=== PATIENT | female | born 1990 | race Caucasian/White ===

== ENCOUNTER 2017-01-22 07:10 | Emergency (ER) | payer OTHER ==
[2017-01-22] MEDS ORDERED: SODIUM CHLORIDE 0.9% 1,000 ML IV STA ×2 (07:39)
--- NOTE | 2017-01-22 08:37 | ED ---
Syncope HPI - General Chief Complaint: Syncope Stated Complaint: Syncope Time Seen by Provider: 01/22/17 07:28 Source: patient Mode of arrival: ambulatory - History of Present Illness Initial Comments: This 26-year-old white female presents with a complaint of a syncopal episode. She apparently was up all night as she works late. She was out by her car when she had a syncopal episode. She apparently fell forwards and hit her mouth on the car and then fell backwards and hit her head. This occurred at 5:20 AM. She apparently was somewhat out of it directly afterwards but has regained normal consciousness. She does complain of some pain around her mouth and to her occiput. She denies any other injuries. She relates that she had a cookie and a fruit rollup right before this happened but otherwise had not eat anything for over 10 hours. She denies any history of hypoglycemia. She denies any possibility of as she is on Depo-Provera. She denies any previous similar incidents. No other complaints or modifying factors. - Related Data Home Medications Medication Instructions Recorded Confirmed medroxyPROGESTERone [Depo-Provera] 150 mg IM ONCE 01/22/17 01/22/17 Allergies Allergy/AdvReac Type Severity Reaction Status Date / Time No Known Allergies Allergy Verified 01/22/17 07:44 Review of Systems ROS Statement: Those systems with pertinent positive or pertinent negative responses have been documented in the HPI. ROS Other: All systems not noted in ROS Statement are negative. Past Medical History Additional Past Medical History / Comment(s): SCOLIOSIS History of Any Multi-Drug Resistant Organisms: None Reported Past Surgical History: Back Surgery Smoking Status: Never smoker Past Alcohol Use History: Occasional Past Drug Use History: None Reported General Exam - General Exam Comments Initial Comments: GENERAL: The patient is well nourished and well hydrated. VITAL SIGNS: Heart rate, blood pressure, respiratory rate reviewed as recorded in nurse's notes. EYES: Pupils are round and reactive. Extraocular movements are intact. No conjunctival / lid redness or swelling. ENT: There is mild tenderness and slight swelling present to the left occiput. There is some mild tenderness around the mouth area. Dentition is intact. There is no intraoral lesions or trauma noted. There is no facial swelling noted. Airway is patent. Throat is clear. NECK: Nontender. No swelling or evidence of injury. No subcutaneous emphysema. Trachea is midline. No thyroid mass. HEART: Regular rate and rhythm. Good peripheral pulses. LUNGS/CHEST: Breath sounds clear and equal bilaterally. No rales, rhonchi, or wheezes. No ecchymosis, subcutaneous emphysema, or tenderness. ABDOMEN: Abdomen soft without tenderness. No palpable masses or organomegaly. No peritoneal signs. No abdominal wall swelling or ecchymosis. EXTREMITIES: No extremity tenderness. Normal muscle tone and function. No thoracolumbar tenderness. NEUROLOGIC: Sensation is grossly intact. Cranial nerve exam reveals face is symmetrical, tongue is midline, speech is clear. SKIN: No abrasions or ecchymosis is noted. No induration or masses noted. PSYCHIATRIC: Alert and oriented. Appropriate behavior and judgment. Course Vital Signs 01/22/17 07:14 Temperature 98.4 F Pulse Rate 109 H Respiratory 18 Rate Blood Pressure 124/77 O2 Sat by Pulse 98 Oximetry Medical Decision Making - Medical Decision Making The patient was seen and examined. All diagnostics were reviewed. The EKG shows a normal sinus rhythm at a rate of 93. There is some non-specific ST-T wave changes noted in the anteroseptal leads. The VT interval is 136, QRS duration is 84, and the QTc interval is 420. An IV is started patient is hydrated. The laboratory was unremarkable. The computed tomography scan of the brain was negative for any acute process. She is feeling well on recheck. It is felt that her syncopal episode may have been related to some hypoglycemia potentially. Her blood sugar is fine now but she did have something to eat. She is counseled regarding diet. Return parameters are discussed. She is subsequently discharged. - Lab Data Result diagrams: 01/22/17 07:45 01/22/17 07:45 Lab Results 01/22/17 01/22/17 Range/Units 07:45 07:45 WBC 9.0 (3.8-10.6) k/uL RBC 4.33 (3.80-5.40) m/uL Hgb 13.6 (11.4-16.0) gm/dL Hct 41.6 (34.0-46.0) % MCV 96.2 (80.0-100.0) fL MCH 31.3 (25.0-35.0) pg MCHC 32.6 (31.0-37.0) g/dL RDW 12.2 (11.5-15.5) % Plt Count 247 (150-450) k/uL Neutrophils % (Manual) 81.0 % Lymphocytes % (Manual) 10.0 % Monocytes % (Manual) 9.0 % Neutrophils # (Manual) 7.3 (1.3-7.7) k/uL Lymphocytes # (Manual) 0.9 L (1.0-4.8) k/uL Monocytes # (Manual) 0.8 (0-1.0) k/uL Nucleated RBCs 0 (0-0) /100 WBC Manual Slide Review Performed RBC Morphology Normal Sodium 143 (137-145) mmol/L Potassium 3.9 (3.5-5.1) mmol/L Chloride 108 H (98-107) mmol/L Carbon Dioxide 23 (22-30) mmol/L Anion Gap 12 mmol/L BUN 22 H (7-17) mg/dL Creatinine 0.70 (0.52-1.04) mg/dL Est GFR (MDRD) Af Amer >60 (>60 ml/min/1.73 sqM) Est GFR (MDRD) Non-Af >60 (>60 ml/min/1.73 sqM) Glucose 124 H (74-99) mg/dL Calcium 9.5 (8.4-10.2) mg/dL Total Bilirubin 0.4 (0.2-1.3) mg/dL AST 19 (14-36) U/L ALT 23 (9-52) U/L Alkaline Phosphatase 57 (38-126) U/L Total Protein 6.9 (6.3-8.2) g/dL Albumin 4.4 (3.5-5.0) g/dL Disposition Clinical Impression: Syncope, Head injury Disposition: HOME SELF-CARE Condition: Good Instructions: Head Injury (ED), Syncope (ED) Referrals: Gris Martinez MD [Primary Care Provider] - 1-2 days Time of Disposition: 09:53
[2017-01-22 08:41] LABS: Aty Lym Flag Marked; CH 32.1; CHCM 33.5; HCT 41.6 % (34.0-46.0); HDW 2.39; HGB 13.6 gm/dL (11.4-16.0); MCH 31.3 pg (25.0-35.0); MCHC 32.6 g/dL (31.0-37.0); MCV 96.2 fL (80.0-100.0); MPO Flag Slight; Mean Platelet Volume 7.3; RBC 4.33 m/uL (3.80-5.40); RDW 12.2 % (11.5-15.5); WBC (Perox) 9.32
[2017-01-22 08:55] LABS: ALT 23 U/L (9-52); AST 19 U/L (14-36); Alkaline Phosphatase 57 U/L (38-126); Anion Gap 12 mmol/L; Blood Urea Nitrogen 22 mg/dL (7-17); Calcium 9.5 mg/dL (8.4-10.2); Carbon Dioxide 23 mmol/L (22-30); Chloride 108 mmol/L (98-107); Glucose 124 mg/dL (74-99); Non-African American GFR(MDRD) >60 (>60 ml/min/1.73 sqM); Potassium 3.9 mmol/L (3.5-5.1); Sodium 143 mmol/L (137-145); Total Bilirubin 0.4 mg/dL (0.2-1.3); Total Protein 6.9 g/dL (6.3-8.2)
[2017-01-22 09:05] LABS: Add Differential Manual Differential
[2017-01-22 09:07] LABS: Manual Review Performed; Nucleated Red Blood Cells 0 /100 WBC (0-0); RBC Morphology Normal; Total Cells Counted 100
--- NOTE | 2017-01-22 09:31 | CT ---
EXAMINATION TYPE: CT brain wo con DATE OF EXAM: 01/22/2017 9:26 AM COMPARISON: NONE HISTORY: syncope CT DLP: 1017.9 mGycm. Automated Exposure Control for Dose Reduction was Utilized. TECHNIQUE: CT scan of the head is performed without contrast. FINDINGS: There is no acute intracranial hemorrhage, mass effect, or midline shift identified. The ventricles and sulci are within normal limits in size. Tierney-white matter differentiation is maintain ed. The globes are intact and the visualized sinuses are clear. The calvarium is intact. IMPRESSION: No acute intracranial hemorrhage or midline shift is seen.
[2017-01-22 10:01] VITALS: BP 100/55; PULSE 86; RESP 16; TEMP 99.1
== END 2017-01-22 10:11 | disposition home or self-care (01) ==
LOC: EC 07:10
DX: S09.90XA Unspecified injury of head, initial encounter (principal); R55 Syncope and collapse; W01.198A Fall on same level from slipping, tripping and stumbling with subsequent striking against other object, initial encounter
CPT/HCPCS: 36415; 70450; 80053; 85025; 93005; 96360; 96361; 99284

== ENCOUNTER 2017-06-18 14:09 | Emergency (ER) | payer OTHER ==
[2017-06-18] MEDS ORDERED: ONDANSETRON 4 MG/2 ML VIAL IVP STA (14:43)
[2017-06-18] MEDS ORDERED: KETOROLAC 30 MG/ML 1 ML VIAL IVP STA (14:43)
[2017-06-18] MEDS ORDERED: SODIUM CHLORIDE 0.9% 1,000 ML IV STA (14:43)
--- NOTE | 2017-06-18 14:47 | ED ---
General Adult HPI - General Chief complaint: Back Pain/Injury Stated complaint: Leg Pain Time Seen by Provider: 06/18/17 14:24 Source: patient, RN notes reviewed Mode of arrival: wheelchair Limitations: no limitations - History of Present Illness Initial comments: 26-year-old female presents emergency Department chief complaint of back pain. Patient states she developed his back pain when she woke up from her nap. She has had burning seen for the last 2 days. Patient states that she also has the chills. She denies fevers that she is aware of. She denies any nausea vomiting. Denies any vaginal drainage or discharge. She is a history of scoliosis and does not know if the back pain is due to back. There is some radiation into the legs. She denies any headache at this time. She states just does not feel well. They deny any medications prior to arrival. Patient denies any recent fever, chills, shortness of breath, chest pain, nausea vomiting, numbness or tingling, constipation or diarrhea, headaches or visual changes, or any other current symptoms. - Related Data Home Medications Medication Instructions Recorded Confirmed medroxyPROGESTERone [Depo-Provera] 150 mg IM ONCE 01/22/17 01/22/17 Previous Rx's Medication Instructions Recorded Ciprofloxacin HCl [Cipro] 500 mg PO Q12HR #14 tablet 06/18/17 Allergies Allergy/AdvReac Type Severity Reaction Status Date / Time No Known Allergies Allergy Verified 06/18/17 14:22 Review of Systems ROS Statement: Those systems with pertinent positive or pertinent negative responses have been documented in the HPI. ROS Other: All systems not noted in ROS Statement are negative. Past Medical History Additional Past Medical History / Comment(s): SCOLIOSIS History of Any Multi-Drug Resistant Organisms: None Reported Past Surgical History: Back Surgery Past Psychological History: No Psychological Hx Reported Smoking Status: Never smoker Past Alcohol Use History: Occasional Past Drug Use History: None Reported General Exam - General Exam Comments Initial Comments: General: The patient is awake and alert, in no distress, and does not appear acutely ill. Eye: Pupils are equal, round and reactive to light, extra-ocular movements are intact; there is normal conjunctiva bilaterally. No signs of icterus. Ears, nose, mouth and throat: There are moist mucous membranes and no oral lesions. Neck: The neck is supple, there is no tenderness. Cardiovascular: There is a regular rate and rhythm. No murmur, rub or gallop is appreciated. Respiratory: Lungs are clear to auscultation, respirations are non-labored, breath sounds are equal. No wheezes, stridor, rales, or rhonchi. Gastrointestinal: Soft, non-distended, left lower quadrant tenderness of the abdomen without masses or organomegaly noted. There is no rebound or guarding present. right sided CVA tenderness. Bowel sounds are unremarkable. Back: There is no tenderness to palpation in the midline. There is no obvious deformity. No rashes noted. Musculoskeletal: Normal ROM, no tenderness, There is no pedal edema. There is no calf tenderness or swelling. Sensation intact. Pulses equal bilaterally 2+. Neurological: CN II-XII intact, There are no obvious motor or sensory deficits. Coordination appears grossly intact. Speech is normal. Skin: Skin is warm and dry and no rashes or lesions are noted. Psychiatric: Cooperative, appropriate mood & affect, normal judgment. Limitations: no limitations Course Vital Signs 06/18/17 06/18/17 06/18/17 14:19 14:43 15:34 Temperature 98.9 F 102.8 F H 102.6 F H Pulse Rate 108 H Respiratory 22 Rate Blood Pressure 112/58 O2 Sat by Pulse 99 Oximetry 06/18/17 16:28 Temperature 101.6 F H Pulse Rate 110 H Respiratory 18 Rate Blood Pressure 99/58 O2 Sat by Pulse 99 Oximetry Medical Decision Making - Medical Decision Making 26 yo female presents to the ER with cc of left sided abdominal pain and flank pain with burning and stinging with urination. this time patient does appear to have concern for acute pyelonephritis. We did give her Rocephin here. We'll start her on Cipro for home. We did discuss follow-up with discussed return parameters. We did discuss all the patient's questions. She stated that she understood and she has been plan. All questions have been answered. This time the patient will be discharged home. - Lab Data Result diagrams: 06/18/17 14:50 06/18/17 14:50 Lab Results 06/18/17 06/18/17 06/18/17 Range/Units 14:50 14:50 14:50 WBC 5.4 (3.8-10.6) k/uL RBC 4.26 (3.80-5.40) m/uL Hgb 13.8 (11.4-16.0) gm/dL Hct 41.3 (34.0-46.0) % MCV 97.1 (80.0-100.0) fL MCH 32.5 (25.0-35.0) pg MCHC 33.5 (31.0-37.0) g/dL RDW 13.0 (11.5-15.5) % Plt Count 169 (150-450) k/uL Neutrophils % (Manual) 85 % Band Neutrophils % 1 % Lymphocytes % (Manual) 12 % Monocytes % (Manual) 1 % Eosinophils % (Manual) 1 % Neutrophils # (Manual) 4.60 (1.3-7.7) k/uL Lymphocytes # (Manual) 0.65 L (1.0-4.8) k/uL Monocytes # (Manual) 0.05 (0-1.0) k/uL Eosinophils # (Manual) 0.05 (0-0.7) k/uL Nucleated RBCs 0 (0-0) /100 WBC Manual Slide Review Performed Sodium 139 (137-145) mmol/L Potassium 4.0 (3.5-5.1) mmol/L Chloride 107 (98-107) mmol/L Carbon Dioxide 22 (22-30) mmol/L Anion Gap 10 mmol/L BUN 21 H (7-17) mg/dL Creatinine 0.73 (0.52-1.04) mg/dL Est GFR (MDRD) Af Amer >60 (>60 ml/min/1.73 sqM) Est GFR (MDRD) Non-Af >60 (>60 ml/min/1.73 sqM) Glucose 81 (74-99) mg/dL Plasma Lactic Acid Brennan (0.7-2.0) mmol/L Calcium 8.9 (8.4-10.2) mg/dL Total Bilirubin 0.7 (0.2-1.3) mg/dL AST 21 (14-36) U/L ALT 30 (9-52) U/L Alkaline Phosphatase 51 (38-126) U/L Total Protein 6.5 (6.3-8.2) g/dL Albumin 4.2 (3.5-5.0) g/dL Amylase 45 (30-110) U/L Lipase 227 (23-300) U/L Urine Color Urine Appearance (Clear) Urine pH (5.0-8.0) Ur Specific [place] (1.001-1.035) Urine Protein (Negative) Urine Glucose (UA) (Negative) Urine Ketones (Negative) Urine Blood (Negative) Urine Nitrite (Negative) Urine Bilirubin (Negative) Urine Urobilinogen (<2.0) mg/dL Ur Leukocyte Esterase (Negative) Urine RBC (0-5) /hpf Urine WBC (0-5) /hpf Ur Squamous Epith Cells (0-4) /hpf Urine Bacteria (None) /hpf Urine Mucus (None) /hpf Urine HCG, Qual Not Detected (Not Detectd) 06/18/17 06/18/17 Range/Units 14:50 14:50 WBC (3.8-10.6) k/uL RBC (3.80-5.40) m/uL Hgb (11.4-16.0) gm/dL Hct (34.0-46.0) % MCV (80.0-100.0) fL MCH (25.0-35.0) pg MCHC (31.0-37.0) g/dL RDW (11.5-15.5) % Plt Count (150-450) k/uL Neutrophils % (Manual) % Band Neutrophils % % Lymphocytes % (Manual) % Monocytes % (Manual) % Eosinophils % (Manual) % Neutrophils # (Manual) (1.3-7.7) k/uL Lymphocytes # (Manual) (1.0-4.8) k/uL Monocytes # (Manual) (0-1.0) k/uL Eosinophils # (Manual) (0-0.7) k/uL Nucleated RBCs (0-0) /100 WBC Manual Slide Review Sodium (137-145) mmol/L Potassium (3.5-5.1) mmol/L Chloride (98-107) mmol/L Carbon Dioxide (22-30) mmol/L Anion Gap mmol/L BUN (7-17) mg/dL Creatinine (0.52-1.04) mg/dL Est GFR (MDRD) Af Amer (>60 ml/min/1.73 sqM) Est GFR (MDRD) Non-Af (>60 ml/min/1.73 sqM) Glucose (74-99) mg/dL Plasma Lactic Acid Brennan 1.1 (0.7-2.0) mmol/L Calcium (8.4-10.2) mg/dL Total Bilirubin (0.2-1.3) mg/dL AST (14-36) U/L ALT (9-52) U/L Alkaline Phosphatase (38-126) U/L Total Protein (6.3-8.2) g/dL Albumin (3.5-5.0) g/dL Amylase (30-110) U/L Lipase (23-300) U/L Urine Color Yellow Urine Appearance Clear (Clear) Urine pH 5.5 (5.0-8.0) Ur Specific [place] 1.019 (1.001-1.035) Urine Protein Negative (Negative) Urine Glucose (UA) Negative (Negative) Urine Ketones Trace H (Negative) Urine Blood Negative (Negative) Urine Nitrite Negative (Negative) Urine Bilirubin Negative (Negative) Urine Urobilinogen <2.0 (<2.0) mg/dL Ur Leukocyte Esterase Trace H (Negative) Urine RBC 2 (0-5) /hpf Urine WBC 2 (0-5) /hpf Ur Squamous Epith Cells 1 (0-4) /hpf Urine Bacteria Rare H (None) /hpf Urine Mucus Occasional H (None) /hpf Urine HCG, Qual (Not Detectd) - Radiology Data Radiology results: report reviewed, image reviewed Disposition Clinical Impression: Acute pyelonephritis Disposition: HOME SELF-CARE Condition: Stable Instructions: Kidney Infection (ED) Additional Instructions: Please use medication as discussed. Please follow up with family doctor if symptoms have not improved over the next two days. Please return to the emergency room if your symptoms increase or worsen or for any other concerns. Prescriptions: Ciprofloxacin HCl [Cipro] 500 mg PO Q12HR #14 tablet Referrals: Gris Martinez MD [Primary Care Provider] - 1-2 days Time of Disposition: 17:13
[2017-06-18 15:12] LABS: Aty Lym Flag Marked; CH 33.3; CHCM 34.4; HCT 41.3 % (34.0-46.0); HDW 2.29; HGB 13.8 gm/dL (11.4-16.0); MCH 32.5 pg (25.0-35.0); MCHC 33.5 g/dL (31.0-37.0); MCV 97.1 fL (80.0-100.0); Mean Platelet Volume 7.5; RBC 4.26 m/uL (3.80-5.40); WBC 5.4 k/uL (3.8-10.6); WBC (Perox) 5.81
[2017-06-18 15:14] LABS: Appearance,Urine Clear (Clear); Bacteria,Urine Rare /hpf; Bilirubin,Urine Negative (Negative); Glucose,Urine (UA) Negative (Negative); Ketones,Urine Trace (Negative); Leukocyte Esterase,Urine Trace (Negative); Mucus,Urine Occasional /hpf; Nitrite,Urine Negative (Negative); PH, Urine 5.5 (5.0-8.0); Particle Count 4469; Protein,Urine Negative (Negative); RBC,Urine 2 /hpf (0-5); Specific Gravity,Urine 1.019 (1.001-1.035); Squamous Epithelial Cell,Urine 1 /hpf (0-4); UA Billing (MACRO vs. MICRO) MICRO; Urobilinogen,Urine <2.0 mg/dL (<2.0); WBC,Urine 2 /hpf (0-5)
[2017-06-18 15:21] LABS: ALT 30 U/L (9-52); AST 21 U/L (14-36); Alkaline Phosphatase 51 U/L (38-126); Amylase 45 U/L (30-110); Anion Gap 10 mmol/L; Blood Urea Nitrogen 21 mg/dL (7-17); Calcium 8.9 mg/dL (8.4-10.2); Carbon Dioxide 22 mmol/L (22-30); Chloride 107 mmol/L (98-107); Glucose 81 mg/dL (74-99); Non-African American GFR(MDRD) >60 (>60 ml/min/1.73 sqM); Sodium 139 mmol/L (137-145); Total Bilirubin 0.7 mg/dL (0.2-1.3); Total Protein 6.5 g/dL (6.3-8.2)
[2017-06-18] MEDS ORDERED: RX INFO: IV CONTRAST WAS GIVEN 1 EACH MISC MISCELLANE PRN (15:30)
[2017-06-18 15:37] LABS: Add Differential Manual Differential
[2017-06-18 15:42] LABS: Band Neutrophils % 1 %; Nucleated Red Blood Cells 0 /100 WBC (0-0); Total Cells Counted 100
[2017-06-18 15:43] LABS: Manual Review Performed
[2017-06-18 16:28] VITALS: RESP 18
--- NOTE | 2017-06-18 16:37 | CT ---
EXAMINATION TYPE: CT abdomen pelvis w con DATE OF EXAM: 06/18/2017 COMPARISON: NONE INDICATION: Lower abdominal pain radiating into legs. DLP: 306.7 mGycm, Automated exposure control for dose reduction was used. CONTRAST: 100 mL of Omnipaque 300. Study performed without Oral Contrast TECHNIQUE: Axial images were obtained from above the diaphragm to the pubic rami in the axial plane a t 5 mm thick sections. Reconstructed images are reviewed on the computer in the coronal plane. FINDINGS: Beam hardening artifact from [place] rods are present. Limited CT sections are obtained the lung bases. The lung bases are clear. CT ABDOMEN: Liver: Normal Spleen: Normal Pancreas: Normal Adrenal glands: The adrenal glands are normal. Gallbladder: Normal Kidneys: No masses are evident. No hydronephrosis is present. No cysts are present. Delayed images were obtained through the kidneys, which remain unremarkable. Aorta: Normal Inferior vena cava: Normal. CT PELVIS: Loops of bowel within the abdomen and pelvis are normal. Loops of bowel are examined without oral contrast limiting their evaluation. Some fecal debris is within the colon. Appendix: Normal as visualized Urinary bladder: Normal. Genitourinary structures: Uterus and adnexal regions are clear. Osseous structures: Postsurgical changes are through the scoliotic spine. IMPRESSIONS: 1. No acute abdomen process.
[2017-06-18] MEDS ORDERED: cefTRIAXone 2,000 MG in SODIUM CHLORIDE 0.9% 100 ML IVPB STA (16:38)
[2017-06-18] MEDS ORDERED: ACETAMINOPHEN TAB 500 MG TAB PO STA (16:49)
[2017-06-18 17:56] VITALS: BP 98/57; PULSE 90; TEMP 101.1
== END 2017-06-18 18:05 | disposition home or self-care (01) ==
LOC: EC 14:09
DX: N10 Acute pyelonephritis (principal); Z79.52 Long term (current) use of systemic steroids
CPT/HCPCS: 36415; 80053; 82150; 83605; 83690; 85025; 81001; 81025; 87040; 87491; 87591; 87086; 74177; 99284; 96365; 96375 ×2; 96361; J2405; J0696; J1885; Q9967

== ENCOUNTER 2019-06-10 12:28 | Emergency (ER) | payer OTHER ==
[2019-06-10] MEDS ORDERED: SODIUM CHLORIDE 0.9% 1,000 ML IV ONE (13:28)
--- NOTE | 2019-06-10 13:28 | ED ---
General Adult HPI - General Chief complaint: Urogenital Stated complaint: test Time Seen by Provider: 06/10/19 12:49 Source: patient, RN notes reviewed Mode of arrival: ambulatory Limitations: no limitations - History of Present Illness Initial comments: 28-year-old female presents to the emergency department for a chief complaint of abnormal ultrasound. Patient states she is about 7 weeks . States her last menstrual period was March 31. States she had an ultrasound 1 week ago that showed a 6 weeks . States she had a repeat ultrasound today that did not show any growth and no heart tone. Therefore she was sent here by clinic. Patient does not have an OB. This is patient's first .Patient has no other complaints at this time including shortness of breath, chest pain, abdominal pain, nausea or vomiting, headache, or visual changes. - Related Data Home Medications Medication Instructions Recorded Confirmed Pnv,Calcium 72/Iron/Folic Acid 1 tab PO DAILY 06/10/19 06/10/19 [ Plus Tablet] Allergies Allergy/AdvReac Type Severity Reaction Status Date / Time No Known Allergies Allergy Verified 06/10/19 13:31 Review of Systems ROS Statement: Those systems with pertinent positive or pertinent negative responses have been documented in the HPI. ROS Other: All systems not noted in ROS Statement are negative. Past Medical History Additional Past Medical History / Comment(s): SCOLIOSIS History of Any Multi-Drug Resistant Organisms: None Reported Past Surgical History: Back Surgery Past Psychological History: No Psychological Hx Reported Smoking Status: Never smoker Past Alcohol Use History: Occasional Past Drug Use History: None Reported General Exam Limitations: no limitations General appearance: alert, in no apparent distress Head exam: Present: atraumatic, normocephalic, normal inspection Eye exam: Present: normal appearance, PERRL, EOMI. Absent: scleral icterus, conjunctival injection, periorbital swelling ENT exam: Present: normal exam, mucous membranes moist Neck exam: Present: normal inspection, full ROM. Absent: tenderness, meningismus, lymphadenopathy Respiratory exam: Present: normal lung sounds bilaterally. Absent: respiratory distress, wheezes, rales, rhonchi, stridor Cardiovascular Exam: Present: regular rate, normal rhythm, normal heart sounds. Absent: systolic murmur, diastolic murmur, rubs, gallop, clicks GI/Abdominal exam: Present: soft, normal bowel sounds. Absent: distended, tenderness, guarding, rebound, rigid Course Vital Signs 06/10/19 12:45 Temperature 98.1 F Pulse Rate 102 H Respiratory 18 Rate Blood Pressure 119/71 O2 Sat by Pulse 98 Oximetry Medical Decision Making - Medical Decision Making 28-year-old female currently states she has 7 weeks presents for abnormal outpatient ultrasound. Patient's LMP was 03/31/2019 which would put her at about 10 weeks. Patient states outpatient ultrasound showed possible miscarriage. Denies any vaginal bleeding or cramping. Exam is unremarkable. Minimal vaginal discharge on exam, cultures pending. CBC and CMP is unremarkable. Urine is negative. HCG Quant is 70,737, no previous to compare. Ultrasound shows findings compatible with demise. There is a discrepancy and gestational sac and CRL greater than 2 weeks different. No cardiac activity. This is intrauterine. I did have an in-depth conversation with patient about this as she is very upset. Dr. Alexis discussed this case with Dr. Holman who recommends follow-up with her tomorrow. Patient was updated on this plan. She will call OB tomorrow and return if she has any worsening symptoms. - Lab Data Result diagrams: 06/10/19 13:02 06/10/19 13:02 Lab Results 06/10/19 06/10/19 06/10/19 Range/Units 13:02 13:02 13:02 WBC 8.6 (3.8-10.6) k/uL RBC 4.26 (3.80-5.40) m/uL Hgb 13.7 (11.4-16.0) gm/dL Hct 40.3 (34.0-46.0) % MCV 94.5 (80.0-100.0) fL MCH 32.1 (25.0-35.0) pg MCHC 34.0 (31.0-37.0) g/dL RDW 12.3 (11.5-15.5) % Plt Count 264 (150-450) k/uL Neutrophils % (Manual) 75 % Band Neutrophils % 1 % Lymphocytes % (Manual) 17 % Monocytes % (Manual) 7 % Neutrophils # (Manual) 6.50 (1.3-7.7) k/uL Lymphocytes # (Manual) 1.46 (1.0-4.8) k/uL Monocytes # (Manual) 0.60 (0-1.0) k/uL Nucleated RBCs 0 (0-0) /100 WBC Manual Slide Review Performed RBC Morphology Normal Sodium 140 (137-145) mmol/L Potassium 3.6 (3.5-5.1) mmol/L Chloride 106 (98-107) mmol/L Carbon Dioxide 22 (22-30) mmol/L Anion Gap 12 mmol/L BUN 10 (7-17) mg/dL Creatinine 0.61 (0.52-1.04) mg/dL Est GFR (CKD-EPI)AfAm >90 (>60 ml/min/1.73 sqM) Est GFR (CKD-EPI)NonAf >90 (>60 ml/min/1.73 sqM) Glucose 85 (74-99) mg/dL Calcium 9.8 (8.4-10.2) mg/dL Total Bilirubin 0.6 (0.2-1.3) mg/dL AST 26 (14-36) U/L ALT 20 (9-52) U/L Alkaline Phosphatase 48 (38-126) U/L Total Protein 7.8 (6.3-8.2) g/dL Albumin 4.5 (3.5-5.0) g/dL HCG, Quant 35721.5 mIU/mL Urine Color Colorless Urine Appearance Clear (Clear) Urine pH 6.0 (5.0-8.0) Ur Specific [employer] 1.001 (1.001-1.035) Urine Protein Negative (Negative) Urine Glucose (UA) Negative (Negative) Urine Ketones Negative (Negative) Urine Blood Negative (Negative) Urine Nitrite Negative (Negative) Urine Bilirubin Negative (Negative) Urine Urobilinogen <2.0 (<2.0) mg/dL Ur Leukocyte Esterase Negative (Negative) Disposition Clinical Impression: Missed Disposition: HOME SELF-CARE Condition: Good Instructions (If sedation given, give patient instructions): Miscarriage (ED) Additional Instructions: Please follow up with Dr. Holman tomorrow. Call today to make an appointment for tomorrow. If you have any worsening symptoms such as pain or fevers return to the emergency department. Is patient prescribed a controlled substance at d/c from ED?: No Referrals: Gris Martinez MD [Primary Care Provider] - 1-2 days Jody Holman DO [Doctor of Osteopathic Medicine] - 1-2 days Time of Disposition: 15:50
[2019-06-10 13:47] LABS: HCT 40.3 % (34.0-46.0); HGB 13.7 gm/dL (11.4-16.0); MCH 32.1 pg (25.0-35.0); MCV 94.5 fL (80.0-100.0); Mean Platelet Volume 7.3; Platelet Count 264 k/uL (150-450); RBC 4.26 m/uL (3.80-5.40); RDW 12.3 % (11.5-15.5); WBC 8.6 k/uL (3.8-10.6)
[2019-06-10 13:55] LABS: Appearance,Urine Clear (Clear); Bilirubin,Urine Negative (Negative); Blood,Urine Negative (Negative); Color,Urine Colorless; Glucose,Urine (UA) Negative (Negative); Ketones,Urine Negative (Negative); Leukocyte Esterase,Urine Negative (Negative); Nitrite,Urine Negative (Negative); Protein,Urine Negative (Negative); Specific Gravity,Urine 1.001 (1.001-1.035); Urobilinogen,Urine <2.0 mg/dL (<2.0)
[2019-06-10 14:10] LABS: ALT 20 U/L (9-52); AST 26 U/L (14-36); African American GFR (CKD) >90 (>60 ml/min/1.73 sqM); Albumin 4.5 g/dL (3.5-5.0); Alkaline Phosphatase 48 U/L (38-126); Anion Gap 12 mmol/L; Blood Urea Nitrogen 10 mg/dL (7-17); Calcium 9.8 mg/dL (8.4-10.2); Carbon Dioxide 22 mmol/L (22-30); Chloride 106 mmol/L (98-107); Glucose 85 mg/dL (74-99); Sodium 140 mmol/L (137-145); Total Bilirubin 0.6 mg/dL (0.2-1.3); Total Protein 7.8 g/dL (6.3-8.2)
[2019-06-10 14:12] LABS: Potassium 3.6 mmol/L (3.5-5.1)
[2019-06-10 14:23] LABS: Band Neutrophils % 1 %; Lymphocytes # (M) 1.46 k/uL (1.0-4.8); Neutrophils % (M) 75 %; Nucleated Red Blood Cells 0 /100 WBC (0-0); Total Cells Counted 100
--- NOTE | 2019-06-10 14:32 | US ---
EXAMINATION TYPE: Transabdominal DATE OF EXAM: 06/10/2019 2:05 PM COMPARISON: NONE CLINICAL HISTORY: pain. Pt states abnormal US at outside facility and to get checked out in ER EXAM PERFORMED: Transabdominal (TA) EXAM MEASUREMENTS: GESTATIONAL AGE / DATING Physician Established: Not yet established Dates by LMP: (10 weeks/0 days) EDC: 01/06/2020 Dates by First Scan: No prior Dates by Current Scan for: (7 weeks/2 days) EDC: 01/25/2020 MATERNAL ANATOMY Uterus: 9.4 x 5.0 x 6.1 cm Right Ovary: 2.3 x 1.9 x 1.8 cm Left Ovary: 2.9 x 2.0 x 2.5 cm Post CDS / Adnexa: wnl Presence of free fluid: No Presence of corpus luteal cyst: Left Ovary= 1.5 x 1.6 x 1.5 cm GESTATION / SURVEY CRL: 0.4 cm (6 weeks/1 days) MSD: 3.3 cm (8 weeks/2 days) Yolk Sac (normal less than 6mm): 4mm IUP: Demise Date of LMP: 04/01/2019 Beta HcG (if available): Not available at this time Discrepancy in gestational sac and CRL size >2 weeks difference, pole shows no cardiac activi ty IMPRESSION: Findings compatible with demise, correlate.
[2019-06-10 14:47] LABS: HCG,Quantitative Serum 70737.5 mIU/mL
[2019-06-10 16:04] VITALS: BP 131/76; PULSE 71; RESP 16; TEMP 97.9
[2019-06-11 15:23] LABS: C. trachomatis,PCR Negative (Neg,Equiv); Chlamydia trachomatis Source Urine; N. gonorrhoeae,PCR Negative (Neg,Equiv); Neisseria Source Urine
== END 2019-06-10 15:59 | disposition home or self-care (01) ==
LOC: EC 12:28
DX: O02.1 Missed abortion (principal)
CPT/HCPCS: 36415; 76801; 80053; 81003; 84702; 85025; 87491; 87591; 87808; 96360; 99283

== ENCOUNTER → 2019-06-14 | Outpatient (CLI) | payer OTHER | END | disposition home or self-care (01) | LOC: RADXRMAIN 14:29 | PROVIDERS: ATTEND Obstetrics & Gynecology Obstetrics | DX: O02.1 Missed abortion (principal) | CPT/HCPCS: 84702; 86850; 86900; 86901 ==

== ENCOUNTER → 2019-06-17 | Outpatient (CLI) | payer OTHER ==
[2019-06-17 18:38] LABS: HCT 39.3 % (34.0-46.0); MCH 31.6 pg (25.0-35.0); MCV 95.8 fL (80.0-100.0); Mean Platelet Volume 7.4; Platelet Count 225 k/uL (150-450); RDW 13.1 % (11.5-15.5); WBC 6.9 k/uL (3.8-10.6)
[2019-06-17 19:39] LABS: Eosinophils # (M) 0.07 k/uL (0-0.7); Lymphocytes # (M) 1.59 k/uL (1.0-4.8); Monocytes # (M) 0.07 k/uL (0-1.0); Neutrophils % (M) 75 %; Nucleated Red Blood Cells 0 /100 WBC (0-0); Reactive Lymphocytes Present; Total Cells Counted 100
== END | disposition home or self-care (01) ==
LOC: LABPAT 16:55
PROVIDERS: ATTEND Obstetrics & Gynecology Obstetrics
DX: Z01.812 Encounter for preprocedural laboratory examination (principal); O03.9 Complete or unspecified spontaneous abortion without complication
CPT/HCPCS: 36415; 85025; 86850; 86900; 86901

== ENCOUNTER 2019-06-18 06:27 | Day surgery (SDC) | payer OTHER ==
[~2019-06-18 06:27] MED LIST: Pre Op ABX Message 1 EACH MISC MISCELLANE ONE
[2019-06-18] MEDS ORDERED: LACTATED RINGERS 1,000 ML IV ONE (07:04)
[2019-06-18] MEDS ORDERED: LIDOCAINE 1% 20 ML VIAL (10MG/ML) FOR IV START INTRADERMA ONE (07:05)
[2019-06-18] MEDS ORDERED: MIDAZOLAM (PF) 2 MG/2 ML VIAL IV ONE (07:13)
[2019-06-18] MEDS ORDERED: ONDANSETRON 4 MG/2 ML VIAL IVP ONE (07:14)
[2019-06-18] MEDS ORDERED: DEXAMETHASONE SOD PHOSPHATE 10 MG/ML 1 ML VIAL IV ONE (07:14)
[2019-06-18] MEDS ORDERED: MIDAZOLAM 2 MG/2 ML VIAL ONE (07:34)
[2019-06-18] MEDS ORDERED: fentaNYL (PF) 50 MCG/ML 2 ML AMP ONE (07:34)
[2019-06-18] MEDS ORDERED: LIDOCAINE 1% INJ 10MG/ML (20 ML MDV) ONE (07:34)
[2019-06-18] MEDS ORDERED: PROPOFOL 10 MG/ML 20 ML VIAL IV ONE (07:34)
--- NOTE | 2019-06-18 08:22 | P.OP ---
Date of Procedure: 06/18/19 Preoperative Diagnosis: Missed AB, 6 weeks Postoperative Diagnosis: Same Procedure(s) Performed: Suction dilation and curettage Anesthesia: MAC Surgeon: Jody Holman Estimated Blood Loss (ml): 5 IV fluids (ml): 350 Urine output (ml): 100 Pathology: other (Uterine contents) Condition: stable Disposition: PACU Indications for Procedure: Ultrasound revealing missed AB, 6 weeks no heart tones. Operative Findings: Moderate amount of products of conception. Description of Procedure: Patient was seen in the preoperative area and informed consent was obtained. All questions were answered. Patient was taken back to the operating suite where general anesthesia was obtained without difficulty by the anesthesia department. She was prepped and draped in the normal sterile fashion in the dorsal lithotomy position. A red rubber catheter was then used to drain the bladder of clear yellow urine. A weighted speculum posterior vaginal vault intralipids the cervix is visualized and grasped with a single-tooth tenaculum. Endocervical canal was then serially dilated to 18-Chinese. A 8 curved suction curet was then placed through the cervix and toward the endometrial cavity the suction was then activated and the uterus was cleared of a moderate amount of products of conception. The suction curet was used 3 times. A gentle curettage was then used to confirm that the products of conception had been removed. Once again the suction curet was introduced into the endometrial cavity no further products were noted. The single-tooth tenaculum was taken off of the anterior lip of the cervix hemostasis was appreciated minimal bleeding was noted. Patient tolerated procedure well and was taken the recovery room awake in stable condition.
[2019-06-18 08:25] VITALS: TEMP 97.1
[2019-06-18 08:29] VITALS: RESP 16
[2019-06-18 09:53] VITALS: BP 106/74; PULSE 66
== END 2019-06-18 10:00 | disposition home or self-care (01) ==
LOC: OR 06:27
PROVIDERS: ATTEND Obstetrics & Gynecology Obstetrics
DX: O02.1 Missed abortion (principal); M41.9 Scoliosis, unspecified
CPT/HCPCS: 86900; 86901; 88305; 86850; 59820; J2250 ×2; J1100; J2405; J2001; J3010; J2704

== ENCOUNTER 2019-11-13 12:09 | Emergency (ER) | payer OTHER ==
[2019-11-13 12:19] VITALS: BP 106/57; PULSE 80; RESP 19; TEMP 98
[2019-11-13 13:32] LABS: Appearance,Urine Cloudy (Clear); Bacteria,Urine Occasional /hpf; Bilirubin,Urine Negative (Negative); Blood,Urine Negative (Negative); Calcium Oxalate Crystals,Urine Moderate /hpf; Color,Urine Yellow; Glucose,Urine (UA) Negative (Negative); Ketones,Urine Trace (Negative); Leukocyte Esterase,Urine Trace (Negative); Mucus,Urine Many /hpf; Nitrite,Urine Negative (Negative); Protein,Urine Trace (Negative); Specific Gravity,Urine 1.032 (1.001-1.035); Squamous Epithelial Cell,Urine 5 /hpf (0-4); Urobilinogen,Urine <2.0 mg/dL (<2.0); WBC,Urine 4 /hpf (0-5)
--- NOTE | 2019-11-13 14:35 | ED ---
Female Urogenital HPI - General Chief complaint: Urogenital Stated complaint: UTI Time Seen by Provider: 11/13/19 12:47 Source: patient Mode of arrival: ambulatory Limitations: no limitations - History of Present Illness Initial comments: 29-year-old female currently 13 weeks presents emergency department for dysuria urgency frequency. Patient states it feels like when she's had urinary tract infections in the past. Patient states this past Sunday she was seen by her [employer] where she had a pelvic examination with swabbing for STI. Patient denies concern. Denies vaginal discharge or vaginal bleeding, denies abdominal pain and states FHT were normal at the visit. Patient denies back pain, flu like symptoms, or fevers. Denies flank pain, history of kidney stones, hematuria. Remaining ROS (-). Upon arrival patient VS stable she appears well afebrile. No signs of acute distress. - Related Data Home Medications Medication Instructions Recorded Confirmed Pnv,Calcium 72/Iron/Folic Acid 1 tab PO DAILY 06/10/19 06/18/19 [ Plus Tablet] Previous Rx's Medication Instructions Recorded Cephalexin [Keflex] 500 mg PO Q12HR 5 Days #10 cap 11/13/19 Allergies Allergy/AdvReac Type Severity Reaction Status Date / Time No Known Allergies Allergy Verified 11/13/19 12:19 Review of Systems ROS Statement: Those systems with pertinent positive or pertinent negative responses have been documented in the HPI. ROS Other: All systems not noted in ROS Statement are negative. Past Medical History Additional Past Medical History / Comment(s): SCOLIOSIS History of Any Multi-Drug Resistant Organisms: None Reported Past Surgical History: Back Surgery Additional Past Surgical History / Comment(s): HAD RAMON INSERTED FOR SCOLIOSIS AT AGE 14 Past Psychological History: Anxiety Smoking Status: Never smoker Past Alcohol Use History: Occasional Past Drug Use History: None Reported General Exam - General Exam Comments Initial Comments: General: The patient is awake and alert, in no distress, and does not appear acutely ill. Eye: +3 mm pupils are equal, round and reactive to light, extra-ocular movements are intact. No nystagmus. There is normal conjunctiva bilaterally. No signs of icterus. Ears, nose, mouth and throat: There are moist mucous membranes and no oral lesions. Neck: The neck is supple, there is no tenderness or JVD. Gastrointestinal: non-tender abdomen without masses or organomegaly noted. There is no rebound or guarding present. No CVA tenderness. Musculoskeletal: Normal ROM, no tenderness. Strength 5/5. Sensation intact. Pulses equal bilaterally 2+. Neurological: A&O x 3. CN II-XII intact grossly, There are no obvious motor or sensory deficits. Coordination appears grossly intact. Speech is normal. Skin: Skin is warm and dry and no rashes or lesions are noted. Psychiatric: Cooperative, appropriate mood & affect, normal judgment. Limitations: no limitations Course Vital Signs 11/13/19 12:17 Temperature 98.0 F Pulse Rate 80 Respiratory 19 Rate Blood Pressure 106/57 O2 Sat by Pulse 99 Oximetry Medical Decision Making - Medical Decision Making 29-year-old female presenting today for chief complaint of possible UTI. Leukocyte esterase present in urine. No hematuria. Some mild contamination. And occasional bacteria. No flank pain no fevers no history of kidney stones. At this time I will treat patient with Keflex culture urine and have patient follow up with [employer]. Patient is agreeable to this care plan and discharge at this time. Case discussed with Dr. Dubois - Lab Data Lab Results 11/13/19 Range/Units 12:30 Urine Color Yellow Urine Appearance Cloudy H (Clear) Urine pH 6.0 (5.0-8.0) Ur Specific [place] 1.032 (1.001-1.035) Urine Protein Trace H (Negative) Urine Glucose (UA) Negative (Negative) Urine Ketones Trace H (Negative) Urine Blood Negative (Negative) Urine Nitrite Negative (Negative) Urine Bilirubin Negative (Negative) Urine Urobilinogen <2.0 (<2.0) mg/dL Ur Leukocyte Esterase Trace H (Negative) Urine WBC 4 (0-5) /hpf Ur Squamous Epith Cells 5 H (0-4) /hpf Calcium Oxalate Crystal Moderate H (None) /hpf Urine Bacteria Occasional H (None) /hpf Urine Mucus Many H (None) /hpf Disposition Clinical Impression: UTI (urinary tract infection) Disposition: HOME SELF-CARE Condition: Good Instructions (If sedation given, give patient instructions): Urinary Tract Infection in (ED) Additional Instructions: Please use medication as discussed. Please follow-up with family doctor in the next 2 days, OBGYN in next week. Please return to emergency room if the symptoms increase or worsen or for any other concerns. Prescriptions: Cephalexin [Keflex] 500 mg PO Q12HR 5 Days #10 cap Is patient prescribed a controlled substance at d/c from ED?: No Referrals: Popeye Aaron MD [Primary Care Provider] - 1-2 days Jody Holman DO [Doctor of Osteopathic Medicine] - 1-2 days Time of Disposition: 14:35
== END 2019-11-13 14:59 | disposition home or self-care (01) ==
LOC: EC 12:09
DX: O23.41 Unspecified infection of urinary tract in pregnancy, first trimester (principal); Z3A.13 13 weeks gestation of pregnancy
CPT/HCPCS: 81001; 87086; 99283

== ENCOUNTER 2020-04-22 01:15 | Inpatient (IN) | payer OTHER ==
[2020-04-22] MEDS ORDERED: CITRIC ACID-SODIUM CITRATE 15 ML CUP PO ONE (01:42)
[2020-04-22 01:53] LABS: HCT 40.5 % (34.0-46.0); HGB 13.7 gm/dL (11.4-16.0); MCHC 33.9 g/dL (31.0-37.0); MCV 97.3 fL (80.0-100.0); Mean Platelet Volume 10.1; Platelet Count 179 k/uL (150-450); RBC 4.16 m/uL (3.80-5.40); RDW 12.8 % (11.5-15.5); WBC 11.7 k/uL (3.8-10.6)
[2020-04-22 01:54] LABS: Glucose,Whole Blood 63 mg/dL (75-99)
--- NOTE | 2020-04-22 02:02 | P.HPOB ---
History of Present Illness H&P Date: 04/22/20 Chief Complaint: Strong regular uterine contractions, breech presentation This is a 29-year-old female 2 para 0010 EDC 05/18/2020 at 36-2/7 weeks' gestation. Patient presents this morning with strong regular uterine contractions. Fetus is in the known breech presentation. She denies vaginal bleeding or fluid leakage. She has been nothing by mouth since 10 PM. Past surgical history is significant for Zabala rods placed in the back into thousand and 4. Suction D&C 2019 for missed AB. Current medications vitamins daily. ALLERGIES none known. Family history is essentially unremarkable. Social history patient is single, boyfriend is present and involved. She has never been a smoker. She denies alcohol or drug use. history is significant for blood type A+, rubella status immune. VDRL testing is negative. Urine culture, hepatitis B surface antigen, HIV testing, gonorrhea and chlamydia cultures all negative. Group B strep cultures done today. One-hour Glucola 207, gestational diabetes known. On exam this is a pleasant young female who is 5 foot 2 inches, 129 pounds, 112/77, afebrile. The general physical exam is within normal limits. The extremities reveal no edema. The infant is breech to bedside ultrasound, head in the left upper quadrant. Cervix is 6 cm dilated, 100% effaced, breech presentation, intact. heart rate is consistent with reactive NST. Fingerstick blood sugar 63. Impression: 36-2/7 weeks intrauterine , breech presentation, active labor. History of Zabala rods in the back. Plan: After discussion with anesthesia we will proceed with general anesthetic, primary low transverse section. All risks benefits and alternatives of the procedure have been discussed with the patient in detail. Antibiotic prophylaxis. All questions answered. Past Medical History Additional Past Medical History / Comment(s): SCOLIOSIS History of Any Multi-Drug Resistant Organisms: None Reported Past Surgical History: Back Surgery Additional Past Surgical History / Comment(s): ZABALA RODS INSERTED FOR SCOLIOSIS AT AGE 14 Past Anesthesia/Blood Transfusion Reactions: No Reported Reaction Past Psychological History: Anxiety Additional Psychological History / Comment(s): Doesnt like to talk on phone Smoking Status: Never smoker Past Alcohol Use History: Occasional Past Drug Use History: None Reported Medications and Allergies Home Medications Medication Instructions Recorded Confirmed Type Pnv,Calcium 72/Iron/Folic Acid 1 tab PO DAILY 06/10/19 04/22/20 History [ Plus Tablet] Allergies Allergy/AdvReac Type Severity Reaction Status Date / Time No Known Allergies Allergy Verified 04/22/20 01:41 Exam Intake and Output 04/21/20 04/21/20 04/22/20 14:59 22:59 06:59 Other: Weight 58.513 kg See dictated exam under HPI Results Abnormal Lab Results - Last 24 Hours (Table) 04/22/20 Range/Units 01:44 POC Glucose (mg/dL) 63 L (75-99) mg/dL Assessment and Plan Assessment: 36-2/7 weeks intrauterine , breech presentation, active labor. History of Zabala rods placed in the back 2003 for severe scoliosis Plan: We will proceed with primary low transverse section. Anesthetic consideration is discussed with Dr. Cramer, who is recommending general anesthetic for history of bilateral Zabala rods placed in the back in 2003. This has been explained to the patient who is in agreement and understanding is expressed. All risks benefits and alternatives are reviewed. All questions answered. Time with Patient: Less than 30
[2020-04-22] MEDS ORDERED: PROPOFOL 10 MG/ML 20 ML VIAL IV ONE (02:09)
[2020-04-22] MEDS ORDERED: ONDANSETRON 4 MG/2 ML VIAL ONE (02:09)
[2020-04-22] MEDS ORDERED: HYDROmorphone (PF) 1 MG/ML ONE (02:09)
[2020-04-22] MEDS ORDERED: fentaNYL (PF) 50 MCG/ML 2 ML AMP ONE (02:09)
[2020-04-22] MEDS ORDERED: SUCCINYLCHOLINE CHLORIDE 100 MG/5 ML SYR IV ONE (02:09)
[2020-04-22] MEDS ORDERED: KETOROLAC 30 MG/ML 1 ML VIAL ONE (02:09)
[2020-04-22 02:41] LABS: Lymphocytes # (M) 1.87 k/uL (1.0-4.8); Monocytes # (M) 1.05 k/uL (0-1.0); Neutrophils # (M) 8.78 k/uL (1.3-7.7); Neutrophils % (M) 75 %; Nucleated Red Blood Cells 0 /100 WBC (0-0); Total Cells Counted 100
[2020-04-22] MEDS ORDERED: ZOLPIDEM 5 MG TAB PO PRN (02:50)
[2020-04-22] MEDS ORDERED: ONDANSETRON 4 MG/2 ML VIAL IVP PRN (02:50)
[2020-04-22] MEDS ORDERED: NALOXONE 0.4 MG/ML 1 ML VIAL IV PRN ×2 (02:50→02:56)
[2020-04-22] MEDS ORDERED: SIMETHICONE 80 MG CHEWABLE PO PRN (02:50)
[2020-04-22] MEDS ORDERED: diphenhydrAMINE 50 MG/ML 1 ML VIAL IVP PRN ×2 (02:50)
[2020-04-22] MEDS ORDERED: diphenhydrAMINE 50 MG CAP PO PRN (02:50)
[2020-04-22] MEDS ORDERED: METOCLOPRAMIDE 5 MG/ML 2 ML VIAL IVP PRN (02:50)
[2020-04-22] MEDS ORDERED: diphenhydrAMINE 25 MG CAP PO PRN (02:50)
[2020-04-22] MEDS ORDERED: KETOROLAC 30 MG/ML 1 ML VIAL IVP PRN (02:50)
[2020-04-22] MEDS ORDERED: ACETAMINOPHEN TAB 325 MG TAB PO PRN (02:50)
--- NOTE | 2020-04-22 02:50 | P.OP ---
Date of Procedure: 04/22/20 Preoperative Diagnosis: 36-2/7 weeks' intrauterine , active labor, double footling breech presentation. Leong rods placed in the back 2003 for severe scoliosis Postoperative Diagnosis: Same, normal-appearing tubes and ovaries. Light meconium-stained fluid . No uterine anomalies noted Procedure(s) Performed: Primary low transverse section Anesthesia: PRICE Surgeon: Suzy Darden Chemist Internship #1: Dary Griffin Estimated Blood Loss (ml): 400 IV fluids (ml): 1,000 Urine output (ml): 100 Pathology: none sent Condition: stable Disposition: PACU Operative Findings: Liveborn male infant, double footling breech, Apgars 9 and 10 at one and 5 minutes, 2340 g, 5 lbs. 3 oz. Description of Procedure: After informed consent is thoroughly reviewed, patient is brought back to the operating room. Bicitra given. Diehl catheter placed to direct drainage. She's placed in the dorsal supine position with left lateral uterine displacement. Abdomen is prepped and draped in usual sterile fashion. Antibiotics given. General anesthesia is administered without difficulty. A low transverse skin incision is made in this is carried down to the shallow subcutaneous tissue of approximately 1 cm. Fascia is isolated, scored, extended bilaterally with curved Green scissors. Peritoneum is next identified and incised, there is no bowel or bladder involvement. Bladder is well from the operative field, and protected with the bladder blade to avoid any bladder and/or ureteral injury. A low transverse uterine incision is made in this is carried down into the endometrial cavity. Artificial amniorrhexis reveals light meconium-stained fluid. The 's feet are grasped and the lower extremities are brought through the incision. Spine is turned anterior. The trunk is delivered easily. Pinard maneuver is used for the upper extremities with 180 over rotation. Head is delivered in a flexed position. Patient is officially delivered of a liveborn male at 0219 hours. Umbilical cord is doubly clamped and ligated, he is handed to waiting nurses for evaluation where scores of 9 and 10 at one and 5 minutes respectively are given. The placentas delivered manually, it is inspected and noted to be intact with trivascular cord at 0219 hours. Uterus is then externalized and massaged. Oxytocin is given. Uterus is swept clean with a sterile sponge to avoid any retained products of conception. The edges of the uterine incision are grasped with De La Cruz clamps and the uterus is closed in a two-step fashion. First layer is running locking with 0 Vicryl. Second layer is imbricated with 0 Vicryl. Excellent reapproximation and hemostasis is noted. Bilateral ovaries and tubes are inspected and noted to be normal. No uterine defects or anomalies are appreciated. The abdomen is then suctioned with suction on guard behind the uterus. Uterus is gently placed back into the abdominal cavity. Bilateral gutters are inspected and cleaned. Uterine incision is hemostatically intact, clean and secure. Peritoneal cavity is allowed to close by secondary intention. Fascia is closed in a running stitch of 0 Vicryl with over ligation in the midline. Subcutaneous tissue is irrigated, clean and dry. It is reapproximated with 3-0 Vicryl in a running fashion. 4-0 undyed Monocryl is used for final skin closure. Steri- Strips and Mastisol are applied to the wound. Uterus is massaged. All sponge needle and enhancement counts are correct. Diehl is noted to be draining clear urine. Patient is brought back to recovery room in very good condition with stable vital signs including blood pressure 122/71, pulse 88.
[2020-04-22] MEDS ORDERED: OXYTOCIN 20 UNITS/1000 ML NS 1,000 ML IV SCH (03:15)
[2020-04-22] MEDS ORDERED: HYDROmorphone PCA 10 MG/50 ML BAG IV PRN (03:22)
[2020-04-22] MEDS: LACTATED RINGERS 1,000 ML IV SCH ×3 (04:29→21:42)
[2020-04-22] MEDS: SENNOSIDES-DOCUSATE SODIUM 1 EACH TAB PO SCH ×2 (07:29→20:04)
[2020-04-22] MEDS ORDERED: IBUPROFEN IV 800 MG in SODIUM CHLORIDE 0.9% 250 ML IV ONE (08:32)
[2020-04-22] MEDS ORDERED: ACETAMINOPHEN IV (For NPO) 1,000 MG in EMPTY BAG 1 BAG IVPB STA (08:32)
[2020-04-22] MEDS: IBUPROFEN 600 MG TAB PO PRN (17:24)
[2020-04-22] MEDS: HYDROcodone/APAP 5-325MG 1 EACH TAB PO PRN (23:44)
[2020-04-23] MEDS: IBUPROFEN 600 MG TAB PO PRN ×3 (03:47→17:16)
[2020-04-23 08:16] LABS: HCT 34.2 % (34.0-46.0); HGB 11.1 gm/dL (11.4-16.0); MCH 32.1 pg (25.0-35.0); MCHC 32.6 g/dL (31.0-37.0); MCV 98.6 fL (80.0-100.0); Mean Platelet Volume 10.3; Platelet Count 147 k/uL (150-450); RBC 3.47 m/uL (3.80-5.40); WBC 11.7 k/uL (3.8-10.6)
[2020-04-23 09:05] LABS: Eosinophils # (M) 0.12 k/uL (0-0.7); Lymphocytes # (M) 1.17 k/uL (1.0-4.8); Neutrophils # (M) 10.41 k/uL (1.3-7.7); Neutrophils % (M) 89 %; Nucleated Red Blood Cells 0 /100 WBC (0-0); Total Cells Counted 100
[2020-04-23 09:06] LABS: Polychromasia Present
[2020-04-23 09:51] VITALS: RESP 16
--- NOTE | 2020-04-23 09:55 | P.DS ---
Providers Date of admission: 04/22/20 01:34 Expected date of discharge: 04/23/20 Attending physician: Jody Holman Primary care physician: Stated None - Discharge Diagnosis(es) (1) 36 weeks gestation of Current Visit: Yes Status: Acute (2) Breech presentation Current Visit: Yes Status: Acute (3) S/P section Current Visit: Yes Status: Acute Hospital Course: This 29-year-old 1 now para 1 presented to labor and delivery with complaints of contractions. Patient was noted to be 36 weeks and 2 days at that time. Known breech presentation. Patient was admitted to labor and delivery and primary was performed secondary to breech presentation. General anesthesia was obtained by the anesthesia department secondary to hearing having rods that were placed as a child secondary to scoliosis. Patient had a liveborn male weight of 5 lbs. 3 oz. with Apgars of 9 and 10 at one and 5 minutes or sexually. For full details on the please see the operative report. Patient's course has been uneventful. On this post operative day #1 as was done around 2:45 in the morning on 04/22. Patient is ambulating and voiding without difficulty. She is tolerating a regular diet without nausea or vomiting. She states her pain is well-controlled with ibuprofen and [place]. She is feeling well and does wish discharge home later today. Patient Condition at Discharge: Good Plan - Discharge Summary New Discharge Prescriptions: No Action Pnv,Calcium 72/Iron/Folic Acid [ Plus Tablet] 1 tab PO DAILY Discharge Medication List Pnv,Calcium 72/Iron/Folic Acid [ Plus Tablet] 1 tab PO DAILY 06/10/19 [History] Follow up Appointment(s)/Referral(s): Jody Holman DO [Doctor of Osteopathic Medicine] - 2 Weeks Patient Instructions/Handouts: (DC), (GEN)
[2020-04-23] MEDS: HYDROcodone/APAP 5-325MG 1 EACH TAB PO PRN (13:56)
[2020-04-23 16:36] VITALS: BP 97/62; PULSE 77; TEMP 98.4
== END 2020-04-23 18:40 | disposition home or self-care (01) | DRG 788 ==
LOC: FBPOP 01:15 → 4FBP 01:34
PROVIDERS: ADMIT Obstetrics & Gynecology; ATTEND Obstetrics & Gynecology Obstetrics
PROC: 10D00Z1 Extraction of Products of Conception, Low, Open Approach (ICD-10-PCS; principal; 2020-04-22 02:04)
DX: O32.8XX0 Maternal care for other malpresentation of fetus, not applicable or unspecified (principal); O24.429 Gestational diabetes mellitus in childbirth, unspecified control; M41.9 Scoliosis, unspecified; O77.0 Labor and delivery complicated by meconium in amniotic fluid; Z37.0 Single live birth; Z3A.36 36 weeks gestation of pregnancy; Z79.899 Other long term (current) drug therapy; Z98.890 Other specified postprocedural states; Z86.59 Personal history of other mental and behavioral disorders
CPT/HCPCS: 85025; 86850; 86900; 86901

== ENCOUNTER 2021-04-18 12:23 | Emergency (ER) | payer OTHER ==
[2021-04-18 12:39] VITALS: TEMP 97.9
[2021-04-18 13:54] LABS: HCT 41.9 % (34.0-46.0); MCHC 33.4 g/dL (31.0-37.0); MCV 92.9 fL (80.0-100.0); Mean Platelet Volume 7.7; Platelet Count 248 k/uL (150-450); RBC 4.52 m/uL (3.80-5.40); RDW 12.2 % (11.5-15.5); WBC 5.6 k/uL (3.8-10.6)
[2021-04-18 14:03] LABS: Appearance,Urine Clear (Clear); Bacteria,Urine Occasional /hpf; Bilirubin,Urine Negative (Negative); Blood,Urine Negative (Negative); Color,Urine Yellow; Glucose,Urine (UA) Negative (Negative); Ketones,Urine Negative (Negative); Leukocyte Esterase,Urine Large (Negative); Mucus,Urine Moderate /hpf; Nitrite,Urine Negative (Negative); PH, Urine 6.5 (5.0-8.0); Protein,Urine Negative (Negative); RBC,Urine 4 /hpf (0-5); Specific Gravity,Urine 1.024 (1.001-1.035); Squamous Epithelial Cell,Urine 5 /hpf (0-4); Urobilinogen,Urine <2.0 mg/dL (<2.0); WBC,Urine 12 /hpf (0-5)
[2021-04-18] MEDS ORDERED: MAG HYDROX/AL HYDROX/SIMETH 30 ML, HYOSCYAMINE ELIXIR 10 ML, LIDOCAINE VISCOUS 2% 10 ML PO STA ×3 (14:08)
--- NOTE | 2021-04-18 14:11 | ED ---
General Adult HPI - General Chief complaint: Abdominal Pain Stated complaint: chest pain Time Seen by Provider: 04/18/21 14:02 Source: patient Mode of arrival: ambulatory Limitations: no limitations - History of Present Illness Initial comments: 30-year-old feel presents to emergency Department with a chief complaint of abdominal chest pain. States this started about 3 days ago. States the pain is located in the left upper quadrant region/left lower side of the chest. States it is worse when taking deep breaths. She reports pain to palpation. Does not seem to be postprandial. She denies any significant shortness of breath. Patient is currently on control. She denies any nausea vomiting diarrhea. Denies any vaginal urinary symptoms. Denies any back pain. Denies any fevers or chills. - Related Data Home Medications Medication Instructions Recorded Confirmed Ergocalciferol [Vitamin D2 (1250 1,250 mcg PO Q30D 04/18/21 04/18/21 Mcg = 09467 Iu)] medroxyPROGESTERone [Depo-Provera] 150 mg IM Q84H 04/18/21 04/18/21 Previous Rx's Medication Instructions Recorded Omeprazole [PriLOSEC] 20 mg PO AC-BRKFST #14 cap 04/18/21 Allergies Allergy/AdvReac Type Severity Reaction Status Date / Time No Known Allergies Allergy Verified 04/18/21 16:24 Review of Systems ROS Statement: Those systems with pertinent positive or pertinent negative responses have been documented in the HPI. ROS Other: All systems not noted in ROS Statement are negative. Past Medical History Additional Past Medical History / Comment(s): SCOLIOSIS History of Any Multi-Drug Resistant Organisms: None Reported Past Surgical History: Back Surgery Additional Past Surgical History / Comment(s): ZABALA RODS INSERTED FOR SCOLIOSIS AT AGE 14 Past Anesthesia/Blood Transfusion Reactions: No Reported Reaction Past Psychological History: Anxiety Smoking Status: Never smoker Past Alcohol Use History: Occasional Past Drug Use History: None Reported - Past Family History Mother Family Medical History: No Reported History General Exam Limitations: no limitations General appearance: alert, in no apparent distress Head exam: Present: atraumatic, normocephalic, normal inspection Eye exam: Present: normal appearance, PERRL, EOMI Pupils: Present: normal accommodation ENT exam: Present: normal exam, normal oropharynx, mucous membranes moist Neck exam: Present: normal inspection, full ROM. Absent: tenderness, lymphadenopathy Respiratory exam: Present: normal lung sounds bilaterally. Absent: respiratory distress, wheezes, rales, rhonchi, stridor, chest wall tenderness, accessory muscle use Cardiovascular Exam: Present: regular rate, normal rhythm, normal heart sounds. Absent: systolic murmur GI/Abdominal exam: Present: soft. Absent: distended, tenderness, guarding Extremities exam: Present: normal inspection, full ROM, normal capillary refill. Absent: tenderness, pedal edema, joint swelling Back exam: Present: normal inspection, full ROM. Absent: tenderness, CVA tenderness (R), CVA tenderness (L) Neurological exam: Present: alert, oriented X3 Psychiatric exam: Present: normal affect, normal mood Skin exam: Present: warm, dry, intact, normal color Course Vital Signs 04/18/21 12:36 Temperature 97.9 F Pulse Rate 77 Respiratory 16 Rate Blood Pressure 120/71 O2 Sat by Pulse 99 Oximetry Medical Decision Making - Medical Decision Making 30-year-old feel presents to emergency Department with a chief complaint of abdominal chest pain. On physical examination, patient has left upper quadrant tenderness/left lower chest tenderness as well. No associated GI sinus symptoms. Pain seems to be pleuritic in nature. CBC CMP unremarkable. Cord is within normal limits. Patient has an elevated d-dimer of 0.71. CT chest injury obtained shows no signs of pulmonary embolism. Patient was also given a GI cocktail with some improvement in her symptoms. At this point, I suspect this is a GI related etiology. I will prescribe the patient omeprazole for the next 2 weeks. Advised to make lifestyle changes in order to decrease any acidic foods. Strict return parameters were thoroughly discussed the patient was understanding and agreeable. Case discussed with Dr. Retana. - Lab Data Result diagrams: 04/18/21 13:28 04/18/21 13:28 Lab Results 04/18/21 04/18/21 04/18/21 Range/Units 13:28 13:28 13:28 WBC 5.6 (3.8-10.6) k/uL RBC 4.52 (3.80-5.40) m/uL Hgb 14.0 (11.4-16.0) gm/dL Hct 41.9 (34.0-46.0) % MCV 92.9 (80.0-100.0) fL MCH 31.0 (25.0-35.0) pg MCHC 33.4 (31.0-37.0) g/dL RDW 12.2 (11.5-15.5) % Plt Count 248 (150-450) k/uL MPV 7.7 Neutrophils % (Manual) 68 % Lymphocytes % (Manual) 27 % Monocytes % (Manual) 5 % Neutrophils # (Manual) 3.81 (1.3-7.7) k/uL Lymphocytes # (Manual) 1.51 (1.0-4.8) k/uL Monocytes # (Manual) 0.28 (0-1.0) k/uL Nucleated RBCs 0 (0-0) /100 WBC Manual Slide Review Performed Anisocytosis (manual) Present PT (9.0-12.0) sec INR (<1.2) APTT (22.0-30.0) sec D-Dimer (<0.60) mg/L FEU Sodium (137-145) mmol/L Potassium (3.5-5.1) mmol/L Chloride (98-107) mmol/L Carbon Dioxide (22-30) mmol/L Anion Gap mmol/L BUN (7-17) mg/dL Creatinine (0.52-1.04) mg/dL Est GFR (CKD-EPI)AfAm (>60 ml/min/1.73 sqM) Est GFR (CKD-EPI)NonAf (>60 ml/min/1.73 sqM) Glucose (74-99) mg/dL Calcium (8.4-10.2) mg/dL Total Bilirubin (0.2-1.3) mg/dL AST (14-36) U/L ALT (4-34) U/L Alkaline Phosphatase (38-126) U/L Troponin I (0.000-0.034) ng/mL Total Protein (6.3-8.2) g/dL Albumin (3.5-5.0) g/dL Amylase (30-110) U/L Lipase (23-300) U/L Urine Color Yellow Urine Appearance Clear (Clear) Urine pH 6.5 (5.0-8.0) Ur Specific [place] 1.024 (1.001-1.035) Urine Protein Negative (Negative) Urine Glucose (UA) Negative (Negative) Urine Ketones Negative (Negative) Urine Blood Negative (Negative) Urine Nitrite Negative (Negative) Urine Bilirubin Negative (Negative) Urine Urobilinogen <2.0 (<2.0) mg/dL Ur Leukocyte Esterase Large H (Negative) Urine RBC 4 (0-5) /hpf Urine WBC 12 H (0-5) /hpf Ur Squamous Epith Cells 5 H (0-4) /hpf Urine Bacteria Occasional H (None) /hpf Urine Mucus Moderate H (None) /hpf Urine HCG, Qual Not Detected (Not Detectd) 04/18/21 04/18/21 04/18/21 Range/Units 13:28 14:12 14:12 WBC (3.8-10.6) k/uL RBC (3.80-5.40) m/uL Hgb (11.4-16.0) gm/dL Hct (34.0-46.0) % MCV (80.0-100.0) fL MCH (25.0-35.0) pg MCHC (31.0-37.0) g/dL RDW (11.5-15.5) % Plt Count (150-450) k/uL MPV Neutrophils % (Manual) % Lymphocytes % (Manual) % Monocytes % (Manual) % Neutrophils # (Manual) (1.3-7.7) k/uL Lymphocytes # (Manual) (1.0-4.8) k/uL Monocytes # (Manual) (0-1.0) k/uL Nucleated RBCs (0-0) /100 WBC Manual Slide Review Anisocytosis (manual) PT 10.1 (9.0-12.0) sec INR 0.9 (<1.2) APTT 23.8 (22.0-30.0) sec D-Dimer 0.71 H (<0.60) mg/L FEU Sodium 141 (137-145) mmol/L Potassium 4.3 (3.5-5.1) mmol/L Chloride 110 H (98-107) mmol/L Carbon Dioxide 23 (22-30) mmol/L Anion Gap 8 mmol/L BUN 15 (7-17) mg/dL Creatinine 0.59 (0.52-1.04) mg/dL Est GFR (CKD-EPI)AfAm >90 (>60 ml/min/1.73 sqM) Est GFR (CKD-EPI)NonAf >90 (>60 ml/min/1.73 sqM) Glucose 93 (74-99) mg/dL Calcium 9.5 (8.4-10.2) mg/dL Total Bilirubin 0.5 (0.2-1.3) mg/dL AST 25 (14-36) U/L ALT 14 (4-34) U/L Alkaline Phosphatase 54 (38-126) U/L Troponin I <0.012 (0.000-0.034) ng/mL Total Protein 7.0 (6.3-8.2) g/dL Albumin 4.4 (3.5-5.0) g/dL Amylase 60 (30-110) U/L Lipase 162 (23-300) U/L Urine Color Urine Appearance (Clear) Urine pH (5.0-8.0) Ur Specific [place] (1.001-1.035) Urine Protein (Negative) Urine Glucose (UA) (Negative) Urine Ketones (Negative) Urine Blood (Negative) Urine Nitrite (Negative) Urine Bilirubin (Negative) Urine Urobilinogen (<2.0) mg/dL Ur Leukocyte Esterase (Negative) Urine RBC (0-5) /hpf Urine WBC (0-5) /hpf Ur Squamous Epith Cells (0-4) /hpf Urine Bacteria (None) /hpf Urine Mucus (None) /hpf Urine HCG, Qual (Not Detectd) Disposition Clinical Impression: Abdominal pain Disposition: HOME SELF-CARE Condition: Stable Instructions (If sedation given, give patient instructions): Abdominal Pain (ED), Gastritis (DC) Additional Instructions: Follow-up with her primary care physician. Take prescribed medication as directed. Return to emergency department if symptoms worsen. Is patient prescribed a controlled substance at d/c from ED?: No Referrals: None,Stated [Primary Care Provider] - 1-2 days Time of Disposition: 16:39
[2021-04-18 14:18] LABS: ALT 14 U/L (4-34); AST 25 U/L (14-36); African American GFR (CKD) >90 (>60 ml/min/1.73 sqM); Albumin 4.4 g/dL (3.5-5.0); Alkaline Phosphatase 54 U/L (38-126); Amylase 60 U/L (30-110); Anion Gap 8 mmol/L; Blood Urea Nitrogen 15 mg/dL (7-17); Calcium 9.5 mg/dL (8.4-10.2); Carbon Dioxide 23 mmol/L (22-30); Chloride 110 mmol/L (98-107); Glucose 93 mg/dL (74-99); Lipase 162 U/L (23-300); Non-African American GFR(CKD) >90 (>60 ml/min/1.73 sqM); Potassium 4.3 mmol/L (3.5-5.1); Sodium 141 mmol/L (137-145); Total Bilirubin 0.5 mg/dL (0.2-1.3)
[2021-04-18 14:29] LABS: Lymphocytes # (M) 1.51 k/uL (1.0-4.8); Monocytes # (M) 0.28 k/uL (0-1.0); Neutrophils # (M) 3.81 k/uL (1.3-7.7); Neutrophils % (M) 68 %; Nucleated Red Blood Cells 0 /100 WBC (0-0); Total Cells Counted 100
[2021-04-18 14:32] LABS: Anisocytosis (M) Present
[2021-04-18] MEDS ORDERED: SODIUM CHLORIDE 0.9% 1,000 ML IV ONE (14:33)
[2021-04-18 14:35] LABS: INR 0.9 (<1.2); Partial Thromboplastin Time 23.8 sec (22.0-30.0); Prothrombin Time 10.1 sec (9.0-12.0)
[2021-04-18 14:59] LABS: D-Dimer 0.71 mg/L FEU (<0.60)
--- NOTE | 2021-04-18 16:23 | CT ---
EXAMINATION TYPE: CT chest angio for PE DATE OF EXAM: 04/18/2021 COMPARISON: HISTORY: chest pain CT DLP: 207.8 mGycm Automated exposure control for dose reduction was used. CONTRAST: CT Chest for pulmonary embolism performed with with IV Contrast, patient injected with 100 mL of Isov ue 370. FINDINGS: LUNGS: The lungs are grossly clear, there is no concerning parenchymal mass or nodule identified. T here is no pleural effusion or pneumothorax seen. The tracheobronchial tree is patent. Pleural-based thickening along the right upper lobe with areas of subsegmental consolidation. MEDIASTINUM: There is satisfactory enhancement of the pulmonary artery and its branches, there is no CT evidence for pulmonary embolism. There are no greater than 1 cm hilar or mediastinal lymph nodes. No pericardial effusion is seen. OTHER: Extensive postsurgical changes involving the vertebral column. Scoliotic curvature and fusion of the vertebral column noted residual thymic tissue suspected.. IMPRESSION: 1. No diagnostic evidence of pulmonary embolism. 2. Subsegmental consolidation and pleural based thickening in the right upper lobe is nonspecific ear ly pneumonitis not excluded correlate clinically. 3. Increased soft tissue in the anterior mediastinum likely related to residual thymic tissue and cou ld be followed on a short-term basis with a 6 month follow-up CT scan for confirmation.
[2021-04-18 16:46] VITALS: BP 102/64; PULSE 83; RESP 18
== END 2021-04-18 16:48 | disposition home or self-care (01) ==
LOC: EC 12:23
DX: R10.12 Left upper quadrant pain (principal); R07.89 Other chest pain; F41.9 Anxiety disorder, unspecified; Z79.3 Long term (current) use of hormonal contraceptives; Z79.899 Other long term (current) drug therapy
CPT/HCPCS: 36415; 71275; 80053; 81001; 81025; 82150; 83690; 84484; 85025; 85379; 85610; 85730; 87086; 96360; 96361; 99285

== ENCOUNTER 2021-08-31 12:31 | Emergency (ER) | payer OTHER ==
[2021-08-31 13:04] VITALS: BP 104/78; PULSE 86; RESP 18; TEMP 98.9
[2021-08-31] MEDS ORDERED: ONDANSETRON 4 MG/2 ML VIAL IVP STA (13:27)
[2021-08-31] MEDS ORDERED: SODIUM CHLORIDE 0.9% 1,000 ML IV STA (13:27)
[2021-08-31] MEDS ORDERED: KETOROLAC 15 MG/ML 1 ML VIAL IVP STA (13:27)
[2021-08-31 14:19] LABS: ALT 14 U/L (4-34); AST 23 U/L (14-36); African American GFR (CKD) >90 (>60 ml/min/1.73 sqM); Albumin 4.3 g/dL (3.5-5.0); Alkaline Phosphatase 53 U/L (38-126); Amylase 44 U/L (30-110); Anion Gap 11 mmol/L; Blood Urea Nitrogen 19 mg/dL (7-17); Calcium 9.3 mg/dL (8.4-10.2); Carbon Dioxide 22 mmol/L (22-30); Chloride 107 mmol/L (98-107); Glucose 88 mg/dL (74-99); Lipase 117 U/L (23-300); Non-African American GFR(CKD) >90 (>60 ml/min/1.73 sqM); Sodium 140 mmol/L (137-145); Total Bilirubin 0.4 mg/dL (0.2-1.3); Total Protein 6.9 g/dL (6.3-8.2)
[2021-08-31 14:35] LABS: Appearance,Urine Cloudy (Clear); Bacteria,Urine Occasional /hpf; Bilirubin,Urine Negative (Negative); Blood,Urine Negative (Negative); Color,Urine Yellow; Glucose,Urine (UA) Negative (Negative); Ketones,Urine 2+ (Negative); Leukocyte Esterase,Urine Large (Negative); Mucus,Urine Many /hpf; Nitrite,Urine Negative (Negative); Protein,Urine 1+ (Negative); RBC,Urine 7 /hpf (0-5); Squamous Epithelial Cell,Urine 17 /hpf (0-4); Urobilinogen,Urine <2.0 mg/dL (<2.0); WBC,Urine 16 /hpf (0-5)
[2021-08-31 14:40] LABS: HCT 41.5 % (34.0-46.0); HGB 14.3 gm/dL (11.4-16.0); MCH 32.3 pg (25.0-35.0); MCHC 34.5 g/dL (31.0-37.0); MCV 93.7 fL (80.0-100.0); Platelet Count 183 k/uL (150-450); RBC 4.43 m/uL (3.80-5.40); RDW 13.1 % (11.5-15.5); WBC 4.5 k/uL (3.8-10.6)
[2021-08-31] MEDS ORDERED: cefTRIAXone IN SWFI 1,000 MG/10 ML SYRINGE IVP STA (14:43)
--- NOTE | 2021-08-31 14:44 | ED ---
Back Pain HPI - General Chief Complaint: Back Pain/Injury Stated Complaint: back pain Time Seen by Provider: 08/31/21 13:20 Source: patient, RN notes reviewed Limitations: no limitations - History of Present Illness Initial Comments: Patient is a 30-year-old female that presents to the emergency department complaining of right flank pain. She notes the pain has been coming and going for the past 2 days. She notes that she she might have Covid due to her kid being sick. She denied any urinary issues such as frequency or dysuria. Denied any history of kidney stones. Patient was in moderate amounts of emotional distress while sitting up in bed in exam interview. She did have tears in her eyes. She noted that she's been taking Motrin [id number] for the past 3 da ys with no relief. Patient notes that she came to the emergency room to get evaluated and while sitting in bed pain has subsided minimally. Patient denied any chest pain shortness of breath headache nausea vomiting diarrhea constipation fever fatigue chills. - Related Data Home Medications Medication Instructions Recorded Confirmed medroxyPROGESTERone [Depo-Provera] 150 mg IM Q84H 04/18/21 08/31/21 Allergies Allergy/AdvReac Type Severity Reaction Status Date / Time No Known Allergies Allergy Verified 08/31/21 15:00 Review of Systems ROS Statement: Those systems with pertinent positive or pertinent negative responses have been documented in the HPI. ROS Other: All systems not noted in ROS Statement are negative. Past Medical History Additional Past Medical History / Comment(s): SCOLIOSIS History of Any Multi-Drug Resistant Organisms: None Reported Past Surgical History: Back Surgery Additional Past Surgical History / Comment(s): ZABALA RODS INSERTED FOR SCOLIOSIS AT AGE 14 Past Anesthesia/Blood Transfusion Reactions: No Reported Reaction Past Psychological History: Anxiety Smoking Status: Never smoker Past Alcohol Use History: Occasional Past Drug Use History: None Reported - Past Family History Mother Family Medical History: No Reported History General Exam Limitations: no limitations General appearance: alert, in no apparent distress Head exam: Present: atraumatic, normocephalic, normal inspection Eye exam: Present: normal appearance, PERRL, EOMI. Absent: scleral icterus, conjunctival injection, periorbital swelling ENT exam: Present: normal exam, mucous membranes moist Neck exam: Present: normal inspection Respiratory exam: Present: normal lung sounds bilaterally. Absent: respiratory distress, wheezes, rales, rhonchi, stridor Cardiovascular Exam: Present: regular rate, normal rhythm, normal heart sounds. Absent: systolic murmur, diastolic murmur, rubs, gallop, clicks GI/Abdominal exam: Present: soft, normal bowel sounds. Absent: distended, tenderness, guarding, rebound, rigid Extremities exam: Present: normal inspection, full ROM, normal capillary refill. Absent: tenderness, pedal edema, joint swelling, calf tenderness Back exam: Present: normal inspection, CVA tenderness (R) Neurological exam: Present: alert, oriented X3 Psychiatric exam: Present: normal affect, normal mood Skin exam: Present: warm, dry, intact, normal color. Absent: rash Course Vital Signs 08/31/21 13:00 Temperature 98.9 F Pulse Rate 86 Respiratory 18 Rate Blood Pressure 104/78 O2 Sat by Pulse 99 Oximetry Medical Decision Making - Medical Decision Making 30-year-old female complaining of right flank pain for the past several days on and off. Labs, 1 L normal saline, 15 mg of Toradol, [address] the abdomen and pelvis ordered. Covid test ordered. Labs: CBC unremarkable, CMP unremarkable, urinalysis shows moderate amounts of white blood cells and red blood cells and occasional bacteria. 1 g Rocephin ordered. Computed tomography scan negative for any acute process. Patient is Covid-positive. Patient is a remote discharge home with conservative management with Tylenol Motrin for aches pains and fevers and increase fluids. Case discussed with Dr. Alexis outpatient discharge home. - Lab Data Result diagrams: 08/31/21 13:57 08/31/21 13:57 Lab Results 08/31/21 08/31/21 08/31/21 Range/Units 13:57 13:57 14:03 WBC 4.5 (3.8-10.6) k/uL RBC 4.43 (3.80-5.40) m/uL Hgb 14.3 (11.4-16.0) gm/dL Hct 41.5 (34.0-46.0) % MCV 93.7 (80.0-100.0) fL MCH 32.3 (25.0-35.0) pg MCHC 34.5 (31.0-37.0) g/dL RDW 13.1 (11.5-15.5) % Plt Count 183 (150-450) k/uL MPV 8.0 Sodium 140 (137-145) mmol/L Potassium 4.0 (3.5-5.1) mmol/L Chloride 107 (98-107) mmol/L Carbon Dioxide 22 (22-30) mmol/L Anion Gap 11 mmol/L BUN 19 H (7-17) mg/dL Creatinine 0.72 (0.52-1.04) mg/dL Est GFR (CKD-EPI)AfAm >90 (>60 ml/min/1.73 sqM) Est GFR (CKD-EPI)NonAf >90 (>60 ml/min/1.73 sqM) Glucose 88 (74-99) mg/dL Calcium 9.3 (8.4-10.2) mg/dL Total Bilirubin 0.4 (0.2-1.3) mg/dL AST 23 (14-36) U/L ALT 14 (4-34) U/L Alkaline Phosphatase 53 (38-126) U/L Total Protein 6.9 (6.3-8.2) g/dL Albumin 4.3 (3.5-5.0) g/dL Amylase 44 (30-110) U/L Lipase 117 (23-300) U/L Urine Color Yellow Urine Appearance Cloudy H (Clear) Urine pH 6.0 (5.0-8.0) Ur Specific [place] 1.030 (1.001-1.035) Urine Protein 1+ H (Negative) Urine Glucose (UA) Negative (Negative) Urine Ketones 2+ H (Negative) Urine Blood Negative (Negative) Urine Nitrite Negative (Negative) Urine Bilirubin Negative (Negative) Urine Urobilinogen <2.0 (<2.0) mg/dL Ur Leukocyte Esterase Large H (Negative) Urine RBC 7 H (0-5) /hpf Urine WBC 16 H (0-5) /hpf Ur Squamous Epith Cells 17 H (0-4) /hpf Urine Bacteria Occasional H (None) /hpf Urine Mucus Many H (None) /hpf Urine HCG, Qual (Not Detectd) Coronavirus (PCR) (Not Detectd) 08/31/21 08/31/21 Range/Units 14:03 14:06 WBC (3.8-10.6) k/uL RBC (3.80-5.40) m/uL Hgb (11.4-16.0) gm/dL Hct (34.0-46.0) % MCV (80.0-100.0) fL MCH (25.0-35.0) pg MCHC (31.0-37.0) g/dL RDW (11.5-15.5) % Plt Count (150-450) k/uL MPV Sodium (137-145) mmol/L Potassium (3.5-5.1) mmol/L Chloride (98-107) mmol/L Carbon Dioxide (22-30) mmol/L Anion Gap mmol/L BUN (7-17) mg/dL Creatinine (0.52-1.04) mg/dL Est GFR (CKD-EPI)AfAm (>60 ml/min/1.73 sqM) Est GFR (CKD-EPI)NonAf (>60 ml/min/1.73 sqM) Glucose (74-99) mg/dL Calcium (8.4-10.2) mg/dL Total Bilirubin (0.2-1.3) mg/dL AST (14-36) U/L ALT (4-34) U/L Alkaline Phosphatase (38-126) U/L Total Protein (6.3-8.2) g/dL Albumin (3.5-5.0) g/dL Amylase (30-110) U/L Lipase (23-300) U/L Urine Color Urine Appearance (Clear) Urine pH (5.0-8.0) Ur Specific [place] (1.001-1.035) Urine Protein (Negative) Urine Glucose (UA) (Negative) Urine Ketones (Negative) Urine Blood (Negative) Urine Nitrite (Negative) Urine Bilirubin (Negative) Urine Urobilinogen (<2.0) mg/dL Ur Leukocyte Esterase (Negative) Urine RBC (0-5) /hpf Urine WBC (0-5) /hpf Ur Squamous Epith Cells (0-4) /hpf Urine Bacteria (None) /hpf Urine Mucus (None) /hpf Urine HCG, Qual Not Detected (Not Detectd) Coronavirus (PCR) Detected A (Not Detectd) - Radiology Data Radiology results: report reviewed, image reviewed Please return to the Emergency Department if symptoms worsen or any other concerns. Disposition Clinical Impression: Urinary tract infection, COVID Disposition: HOME SELF-CARE Condition: Stable Instructions (If sedation given, give patient instructions): Urinary Tract Infection in Women (ED), Coronavirus Disease 2019 (COVID-19) Additional Instructions: Please return to the Emergency Department if symptoms worsen or any other concerns. Follow-up with primary care 1-2 days. Take antibiotics as prescribed until complete. Quarantine per CDC guidelines. Is patient prescribed a controlled substance at d/c from ED?: No Referrals: None,Stated [Primary Care Provider] - 1-2 days Time of Disposition: 15:08
--- NOTE | 2021-08-31 15:03 | CT ---
EXAMINATION TYPE: CT abdomen pelvis w con DATE OF EXAM: 08/31/2021 COMPARISON: CT 06/18/2017 HISTORY: flank pain CT DLP: 647 mGycm Automated exposure control for dose reduction was used. TECHNIQUE: Helical acquisition of images from the lung bases through the pelvis have been completed. CONTRAST: Performed without Oral Contrast and with IV Contrast, patient injected with 100 mL of Isovue 300. FINDINGS: LUNG BASES: Some minimal basilar scarring is appreciated. AORTA: No significant abnormality is appreciated. LIVER/GB: No significant abnormality is appreciated. PANCREAS: No significant abnormality is seen. SPLEEN: No significant abnormality is seen. ADRENALS: No significant abnormality is seen. KIDNEYS: No significant abnormality is seen. REPRODUCTIVE ORGANS: No significant abnormality is seen BOWEL: No significant abnormality is seen. The appendix is thought to be normal FREE AIR: No Free Air visible. ASCITES: None visible. PELVIC ADENOPATHY: None visualized. RETROPERITONEAL ADENOPATHY: No Retroperitoneal Adenopathy visible. URINARY BLADDER: No significant abnormality is seen. OSSEOUS STRUCTURES: Postop changes are noted to the thoracic lumbar spine, there is metallic artifac t due to patient's hardware in the spine, there is spinal curvature. IMPRESSION: NO ABNORMALITY EVIDENT TO ACCOUNT FOR PATIENT'S SYMPTOMS
[2021-08-31 16:04] LABS: Band Neutrophils % 2 %; Lymphocytes # (M) 0.86 k/uL (1.0-4.8); Monocytes # (M) 0.45 k/uL (0-1.0); Neutrophils % (M) 69 %; Nucleated Red Blood Cells 0 /100 WBC (0-0); Total Cells Counted 100
[2021-08-31 16:07] LABS: Anisocytosis (M) Present
== END 2021-08-31 15:41 | disposition home or self-care (01) ==
LOC: EC 12:31
DX: U07.1 COVID-19 (principal); N39.0 Urinary tract infection, site not specified
CPT/HCPCS: 36415; 80053; 82150; 83690; 85025; 81001; 81025; 87086; 87635; 74177; 96374; 96375 ×2; 96361; 99284; J2405; J0696; J1885; Q9967

== ENCOUNTER 2022-04-06 11:48 | Emergency (ER) | payer OTHER ==
[2022-04-06 12:42] VITALS: BP 103/67; PULSE 82; RESP 20; TEMP 98
[2022-04-06] MEDS ORDERED: ORPHENADRINE 30 MG/ML 2 ML VIAL IM STA (13:14)
[2022-04-06] MEDS ORDERED: KETOROLAC 15 MG/ML 1 ML VIAL IM STA (13:15)
--- NOTE | 2022-04-06 13:19 | ED ---
General Adult HPI - General Chief complaint: Back Pain/Injury Stated complaint: Lower back pain/past back surgery Time Seen by Provider: 04/06/22 13:05 Source: patient, RN notes reviewed, old records reviewed Mode of arrival: ambulatory Limitations: no limitations - History of Present Illness Initial comments: This is a well-appearing 31-year-old female who presents to emergency room with low back pain that started yesterday evening. She denies any trauma. She states she wasn't doing anything when the pain occurred. She states that she does have a 2-year-old child that she carries around on her hip. She does have a history of scoliosis and had surgery for correction several years ago. She denies any fevers, no nausea vomiting diarrhea or dysuria. She states that she has never had this type of pain before. She is able to ambulate with a steady gait. She is requesting a x-ray of her low back. -: days(s) (1) Location: back (ls spine) Radiation: distal Severity scale (1-10): 7 Quality: constant Consistency: constant Improves with: none Associated Symptoms: denies other symptoms - Related Data Home Medications Medication Instructions Recorded Confirmed medroxyPROGESTERone [Depo-Provera] 150 mg IM Q84D 04/18/21 04/06/22 Ergocalciferol [Vitamin D2 (1250 1,250 mcg PO QMONTHLY 04/06/22 04/06/22 Mcg = 10560 Iu)] Previous Rx's Medication Instructions Recorded Sulfamethox-Tmp 800-160Mg [Bactrim 1 each PO Q12HR 3 Days #9 tab 04/06/22 Ds] Allergies Allergy/AdvReac Type Severity Reaction Status Date / Time No Known Allergies Allergy Verified 04/06/22 13:54 Review of Systems ROS Statement: Those systems with pertinent positive or pertinent negative responses have been documented in the HPI. ROS Other: All systems not noted in ROS Statement are negative. Past Medical History Additional Past Medical History / Comment(s): SCOLIOSIS History of Any Multi-Drug Resistant Organisms: None Reported Past Surgical History: Back Surgery Additional Past Surgical History / Comment(s): ZABALA RODS INSERTED FOR SCOLIOSIS AT AGE 14 Past Anesthesia/Blood Transfusion Reactions: No Reported Reaction Past Psychological History: Anxiety Smoking Status: Never smoker Past Alcohol Use History: Occasional Past Drug Use History: None Reported - Past Family History Mother Family Medical History: No Reported History General Exam Limitations: no limitations General appearance: alert, in no apparent distress Head exam: Present: atraumatic Neck exam: Present: full ROM. Absent: tenderness, meningismus Respiratory exam: Absent: respiratory distress, accessory muscle use Cardiovascular Exam: Present: regular rate Extremities exam: Present: normal capillary refill Back exam: Present: normal inspection, full ROM, other (Surgical scar to spine from scoliosis repair; surgical scar cervical spine). Absent: tenderness, CVA tenderness (R), CVA tenderness (L) Expanded Back exam: Absent: saddle anesthesia Neurological exam: Present: alert, oriented X3, normal gait Expanded Patient oriented to: Present: person, place, time Speech: Present: fluid speech Eye Response: (4) open spontaneously Motor Response: (6) obeys commands Verbal Response: (5) oriented Cj Total: 15 Psychiatric exam: Present: normal affect, normal mood Skin exam: Present: warm, dry, intact, normal color. Absent: cyanosis, diaphoretic, petechiae, pallor Course Vital Signs 04/06/22 12:39 Temperature 98.0 F Pulse Rate 82 Respiratory 20 Rate Blood Pressure 103/67 O2 Sat by Pulse 98 Oximetry Medical Decision Making - Medical Decision Making X-ray shows no evidence of fracture, postop changes for scoliosis. Urinalysis shows large leukocyte esterase with moderate bacteria and 11 white blood cells. Negative for . Patient notified of XR and UA results. She states that she does have some dysuria at times. She was treated for urinary tract infection with Bactrim. She was directed to have her urine rechecked by her primary care doctor on Sunday and return to the emergency room with any new or concerning symptoms. Case discussed with Dr. Potts. - Lab Data Lab Results 04/06/22 04/06/22 Range/Units 13:25 13:25 Urine Color Yellow Urine Appearance Cloudy H (Clear) Urine pH 6.5 (5.0-8.0) Ur Specific [place] 1.025 (1.001-1.035) Urine Protein Trace H (Negative) Urine Glucose (UA) Negative (Negative) Urine Ketones 1+ H (Negative) Urine Blood Negative (Negative) Urine Nitrite Negative (Negative) Urine Bilirubin Negative (Negative) Urine Urobilinogen <2.0 (<2.0) mg/dL Ur Leukocyte Esterase Large H (Negative) Urine RBC 3 (0-5) /hpf Urine WBC 11 H (0-5) /hpf Ur Squamous Epith Cells 9 H (0-4) /hpf Urine Bacteria Moderate H (None) /hpf Urine Mucus Many H (None) /hpf Urine HCG, Qual Not Detected (Not Detectd) Disposition Clinical Impression: UTI (urinary tract infection), Back pain Disposition: HOME SELF-CARE Condition: Good Instructions (If sedation given, give patient instructions): Urinary Tract Infection in Women (ED), Acute Low Back Pain (ED) Additional Instructions: Increase your fluid intake and take antibiotics as prescribed. You can take Motrin and/or Tylenol as needed for any pain. Follow-up with the primary care doctor on Sunday to reevaluate your urine. Return to the emergency room with any new or concerning symptoms. Prescriptions: Sulfamethox-Tmp 800-160Mg [Bactrim Ds] 1 each PO Q12HR 3 Days #9 tab Is patient prescribed a controlled substance at d/c from ED?: No Referrals: Popeye Aaron MD [Primary Care Provider] - 1-2 days Time of Disposition: 15:06
[2022-04-06 13:43] LABS: Appearance,Urine Cloudy (Clear); Bacteria,Urine Moderate /hpf; Bilirubin,Urine Negative (Negative); Blood,Urine Negative (Negative); Color,Urine Yellow; Glucose,Urine (UA) Negative (Negative); Ketones,Urine 1+ (Negative); Leukocyte Esterase,Urine Large (Negative); Mucus,Urine Many /hpf; Nitrite,Urine Negative (Negative); PH, Urine 6.5 (5.0-8.0); Protein,Urine Trace (Negative); RBC,Urine 3 /hpf (0-5); Specific Gravity,Urine 1.025 (1.001-1.035); Squamous Epithelial Cell,Urine 9 /hpf (0-4); Urobilinogen,Urine <2.0 mg/dL (<2.0); WBC,Urine 11 /hpf (0-5)
--- NOTE | 2022-04-06 14:50 | XR ---
Lumbar spine HISTORY: Low back pain radiating down legs 3 views the lumbar spine There are fixation rods posteriorly extending from the thoracic spine into the lumbar region to the L 1, L2 and L3 levels, there is some associated loss of disc height at L1-2 and L2-3. Scoliotic curvatu re is present in the thoracolumbar spine. Lumbar vertebral bodies show preserved height. Bone mineral ization is maintained. There are overlying artifacts. Segmentation anomaly may be present in the lowe r thoracic spine. IMPRESSION: Postop changes for scoliosis.
[2022-04-06] MEDS ORDERED: SULFAMETHOX-TMP 800-160MG 1 EACH TAB PO STA (15:05)
== END 2022-04-06 15:30 | disposition home or self-care (01) ==
LOC: EC 11:48
DX: N39.0 Urinary tract infection, site not specified (principal); M54.50 Low back pain, unspecified
CPT/HCPCS: 81001; 81025; 87086; 72100; 99283; 96372; J2360; J1885

== ENCOUNTER 2024-06-12 08:50 | Outpatient (CLI) | payer OTHER | END 2024-06-12 11:46 | LOC: FBPOP 08:50 | PROVIDERS: ATTEND Obstetrics & Gynecology Obstetrics | CPT/HCPCS: 59025; 87086; 99213 ==

== ENCOUNTER 2024-07-27 02:58 | Inpatient (IN) | payer OTHER ==
[2024-07-27] MEDS ORDERED: OXYTOCIN 10 UNIT/ML 1 ML VIAL IM PRN ×3 (03:28→17:39)
[2024-07-27] MEDS ORDERED: CARBOPROST TROMETHAMINE 250 MCG/ML 1 ML AMP IM PRN ×2 (03:28→04:13)
[2024-07-27] MEDS ORDERED: METHYLERGONOVINE 0.2 MG/ML 1 ML AMP IM PRN ×2 (03:28→04:13)
[2024-07-27] MEDS ORDERED: TRANEXAMIC 1,000 MG/100ML-NACL 1,000 MG in EMPTY BAG 1 BAG IV PRN ×3 (03:28→17:39)
[2024-07-27] MEDS ORDERED: miSOPROStoL 200 MCG TAB PO PRN ×2 (03:28→04:13)
[2024-07-27] MEDS ORDERED: LIDOCAINE 0.5% (PF) 5 MG/ML (50 ML SDV) SQ PRN (04:13)
[2024-07-27] MEDS ORDERED: TERBUTALINE 1 MG/ML VIAL SQ PRN (04:13)
[2024-07-27] MEDS ORDERED: miSOPROStoL 200 MCG TAB RECTAL PRN (04:13)
[2024-07-27] MEDS ORDERED: LANOLIN CREAM 1 GM TUBE TOPICAL PRN (04:14)
[2024-07-27] MEDS ORDERED: SIMETHICONE 80 MG CHEWABLE PO PRN (04:14)
[2024-07-27] MEDS ORDERED: diphenhydrAMINE 50 MG CAP PO PRN (04:14)
[2024-07-27] MEDS ORDERED: HYDROCORTISONE 2.5% RECTAL CREAM 30 GM TUBE RECTAL PRN (04:14)
[2024-07-27] MEDS ORDERED: diphenhydrAMINE 50 MG/ML 1 ML VIAL IVP PRN ×3 (04:14→17:39)
[2024-07-27] MEDS ORDERED: ZOLPIDEM 5 MG TAB PO PRN (04:14)
[2024-07-27] MEDS ORDERED: diphenhydrAMINE 25 MG CAP PO PRN (04:14)
--- NOTE | 2024-07-27 04:22 | P.HPOB ---
History of Present Illness H&P Date: 07/27/24 Chief Complaint: IUP at 38 weeks, active labor This is a 33-year-old 3 para 0-1-1-1 that presented to labor and delivery with complaints of contractions. Patient states contractions started around 2 AM and became strong. Patient was noted to be 7 cm upon presentation to labor and delivery. Patient has been receiving routine care which has been essentially uncomplicated. Patient does have a prior history of a section at 36 weeks for breech presentation. Patient initially was requesting repeat section as she did desire tubal ligation. Patient has a history of scoliosis with hardware, involving just T12-L1 2. On blood work this patient is a blood type of a positive, rubella status immune, hepatitis B surface engine negative, HIV negative, RPR is nonreactive, GBS culture was negative Review of Systems Constitutional: Denies chills, Denies fatigue, Denies fever Ears, nose, mouth and throat: Denies headache Cardiovascular: Denies leg edema Respiratory: Denies dyspnea Gastrointestinal: Denies constipation, Denies diarrhea, Denies nausea, Denies vomiting Genitourinary: Reports Past Medical History Additional Past Medical History / Comment(s): SCOLIOSIS History of Any Multi-Drug Resistant Organisms: None Reported Past Surgical History: Back Surgery Additional Past Surgical History / Comment(s): ZABALA RODS INSERTED FOR SCOLIOSIS AT AGE 14 Past Anesthesia/Blood Transfusion Reactions: No Reported Reaction Past Psychological History: Anxiety Smoking Status: Never smoker Past Alcohol Use History: Occasional Past Drug Use History: None Reported - Past Family History Mother Family Medical History: No Reported History Medications and Allergies Home Medications Medication Instructions Recorded Confirmed Type Aspirin [Adult Low Dose Aspirin EC] 81 mg PO 07/27/24 History Cephalexin [Keflex] 500 mg PO Q12HR 07/27/24 07/27/24 History Vit No.179/Iron/Folic 1 each PO 07/27/24 History [ Tablet] Allergies Allergy/AdvReac Type Severity Reaction Status Date / Time No Known Allergies Allergy Verified 07/27/24 03:04 Exam Osteopathic Statement: *. No significant issues noted on an osteopathic structural exam other than those noted in the History and Physical/Consult. Intake and Output 07/26/24 07/26/24 07/27/24 14:59 22:59 06:59 Other: Weight 59.421 kg Targeted physical exam is performed on this date General Is well-nourished well-developed female in active labor, breathing is nonlabored, abdomen is noted to be gravid and appropriate for gestational age, on cervical exam she is completely dilated with a bulging bag of water, heart tones were noted be category 1 and she is samuel every 2 minutes. Assessment and Plan (1) Term Current Visit: Yes Status: Acute Code(s): Z34.90 - ENCNTR FOR SUPRVSN OF NORMAL , UNSP, UNSP TRIMESTER SNOMED Code(s): 46976540 (2) Active labor Current Visit: Yes Status: Acute Code(s): GPJ7110 - SNOMED Code(s): 185176191 Plan: 33-year-old -1-1-1 at 38 weeks of that presents in active labor. Patient is admitted to labor and delivery for anticipated vaginal delivery.
--- NOTE | 2024-07-27 04:24 | P.PROBDLV ---
Vaginal Delivery Note - . Vaginal Delivery Note: 33-year-old -1-1-1 at 38 weeks of presents in active labor. Patient is admitted to labor and delivery amniotomy is performed and clear fluid was obtained. With excellent maternal effort patient has a successful vaginal delivery after . A compound left hand was appreciated during delivery. After 2-minute delay the umbilical cord was doubly clamped and cut. Placenta was delivered spontaneously intact with a three-vessel cord being noted. Uterus was noted to be firm below the umbilicus. On inspection the patient's vaginal vault a small left labial laceration is appreciated this is hemostatic and patient is uncomfortable therefore it is left to heal spontaneously. Viable male is delivered at 401, weight of 7 pounds 1.4 ounce, 3215 grams. All counts were noted be correct x 2 at the end of the delivery. Patient and tolerated delivery well and are resting comfortably.
[2024-07-27 04:26] VITALS: RESP 16
[2024-07-27] MEDS: LACTATED RINGERS 1,000 ML IV SCH (04:27)
[2024-07-27] MEDS: OXYTOCIN 30 UNITS/500 ML NS 30 UNIT in SALINE 1 500ML.BAG IV SCH (04:28)
[2024-07-27] MEDS: BENZOCAINE/MENTHOL SPRAY 1 GM/SPRAY AEROSOL TOPICAL PRN (04:29)
[2024-07-27 05:05] LABS: HCT 35.1 % (34.0-46.0); MCHC 34.2 g/dL (31.0-37.0); MCV 96.5 fL (80.0-100.0); Mean Platelet Volume 11.5; Platelet Count 185 k/uL (150-450); RBC 3.64 m/uL (3.80-5.40); RDW 13.4 % (11.5-15.5); WBC 8.2 k/uL (3.8-10.6)
[2024-07-27] MEDS: IBUPROFEN 800 MG TAB PO SCH (05:13)
[2024-07-27] MEDS: CITRIC ACID-SODIUM CITRATE 15 ML CUP PO ONE (05:33)
[2024-07-27 05:41] LABS: Lymphocytes # (M) 1.56 k/uL (1.0-4.8); Monocytes # (M) 0.33 k/uL (0-1.0); Neutrophils # (M) 6.31 k/uL (1.3-7.7); Neutrophils % (M) 77 %; Nucleated Red Blood Cells 0 /100 WBC (0-0); Total Cells Counted 100
[2024-07-27] MEDS: CEPHALEXIN 250 MG CAP PO SCH (14:47)
[2024-07-27] MEDS: ACETAMINOPHEN TAB 500 MG TAB PO SCH (17:37)
[2024-07-27] MEDS: PRENATAL VIT-IRON-FOLIC ACID 1 EACH TABLET PO SCH (17:37)
[2024-07-27] MEDS ORDERED: OXYTOCIN 30 UNITS/500 ML NS 30 UNIT in SALINE 1 500ML.BAG IV SCH (17:39)
[2024-07-27] MEDS: SENNOSIDES-DOCUSATE SODIUM 1 EACH TAB PO SCH (17:40)
--- NOTE | 2024-07-28 08:47 | P.DS ---
Providers Date of admission: 07/27/24 03:24 Expected date of discharge: 07/28/24 Attending physician: Jody Holman Primary care physician: Stated None - Discharge Diagnosis(es) (1) Term Current Visit: Yes Status: Acute (2) Active labor Current Visit: Yes Status: Acute (3) Vaginal after section Current Visit: Yes Status: Acute Hospital Course: This is a 33-year-old 3 now para 1-1-1-2 that presented to labor and delivery at 38-0/7 weeks with complaints of regular painful contractions. Patient has a prior history of a section for breech presentation. Upon presentation to labor and delivery she was noted to be 7+ centimeters. Patient was admitted to labor and delivery amniotomy is performed and complete dilation was noted. Patient began pushing and had a vaginal delivery of a viable male infant at 401, Apgars of 8 and 9 at 1 and 5 minutes respectively. weight 7 pounds 1.4 ounces. No vaginal lacerations were appreciated after delivery. Patient's course has been uneventful. In this post day #1 she is ambulating and voiding without difficulty. She is tolerating a regular diet without nausea or vomiting. She states her pain is well-controlled. She denies concerns. She would like discharge home today. Patient Condition at Discharge: Good Plan - Discharge Summary New Discharge Prescriptions: No Action Vit No.179/Iron/Folic [ Tablet] 1 each PO Aspirin [Adult Low Dose Aspirin EC] 81 mg PO Cephalexin [Keflex] 500 mg PO Q12HR Discharge Medication List Aspirin [Adult Low Dose Aspirin EC] 81 mg PO 07/27/24 [History] Cephalexin [Keflex] 500 mg PO Q12HR 07/27/24 [History] Vit No.179/Iron/Folic [ Tablet] 1 each PO 07/27/24 [History] Follow up Appointment(s)/Referral(s): Jody Holman DO [Doctor of Osteopathic Medicine] - 6 Weeks Patient Instructions/Handouts: Vaginal Delivery (DC), Vaginal Delivery (GEN) Activity/Diet/Wound Care/Special Instructions: No intercourse, tampons or baths. Call with any fever, shakes or chills, with any pain not alleviated by over the counter meds, or with any questions or concerns. [id number] ibuprofen 600 mg or 3 tablets every 6 hours as needed for pain. Discharge Disposition: HOME SELF-CARE
[2024-07-28 09:11] VITALS: BP 117/75; PULSE 67; TEMP 98.3
== END 2024-07-28 10:40 | disposition home or self-care (01) | DRG 560 ==
LOC: FBPOP 02:58 → 4FBP 03:24
PROVIDERS: ADMIT Obstetrics & Gynecology Obstetrics; ATTEND Obstetrics & Gynecology Obstetrics
PROC: 10907ZC Drainage of Amniotic Fluid, Therapeutic from Products of Conception, Via Natural or Artificial Opening (ICD-10-PCS; principal; 2024-07-27)
PROC: 10E0XZZ Delivery of Products of Conception, External Approach (ICD-10-PCS; principal; 2024-07-27)
DX: O34.219 Maternal care for unspecified type scar from previous cesarean delivery (principal); O99.892 Other specified diseases and conditions complicating childbirth; M41.9 Scoliosis, unspecified; O99.344 Other mental disorders complicating childbirth; F41.9 Anxiety disorder, unspecified; O32.6XX0 Maternal care for compound presentation, not applicable or unspecified; O70.0 First degree perineal laceration during delivery; Z28.310 Unvaccinated for COVID-19; Z79.82 Long term (current) use of aspirin; Z79.899 Other long term (current) drug therapy; Z3A.38 38 weeks gestation of pregnancy; Z37.0 Single live birth
CPT/HCPCS: 85025; 86850; 86900; 86901; 99213

== ENCOUNTER → 2024-10-20 | Outpatient (CLI) | payer OTHER ==
[2024-10-20 19:20] LABS: Basophils # (A) 0.05 X 10*3/uL (0.00-0.10); Basophils % (A) 0.6 %; Eosinophils # (A) 0.12 X 10*3/uL (0.04-0.35); Eosinophils % (A) 1.5 %; HCT 39.6 % (37.2-46.3); HGB 12.5 g/dL (12.0-15.0); Lymphocytes # (A) 1.32 X 10*3/uL (0.90-5.00); MCH 30.8 pg (27.0-32.0); MCHC 31.6 g/dL (32.0-37.0); MCV 97.5 FL (80.0-97.0); Mean Platelet Volume 11.1 FL (9.5-12.2); Monocytes # (A) 0.47 X 10*3/uL (0.20-1.00); NRBC Per 100 WBC 0 X 10*3/uL (0.00-0.01); Neutrophils # (A) 5.79 X 10*3/uL (1.80-7.70); Neutrophils % (A) 74.6 %; Platelet Count 238 X 10*3/uL (140-440); RBC 4.06 X 10*6/uL (4.10-5.20); RDW 12.7 % (11.5-14.5); WBC 7.77 X 10*3/uL (4.50-10.00)
== END | disposition home or self-care (01) ==
LOC: LABPAT 13:46
PROVIDERS: ATTEND Obstetrics & Gynecology Obstetrics
DX: Z01.812 Encounter for preprocedural laboratory examination (principal)
CPT/HCPCS: 85025

== ENCOUNTER → 2024-11-17 | Outpatient (CLI) | payer OTHER ==
[2024-11-17 15:08] LABS: HGB 12.3 g/dL (12.0-15.0); MCH 30.4 pg (27.0-32.0); MCHC 32.4 g/dL (32.0-37.0); MCV 93.8 FL (80.0-97.0); Mean Platelet Volume 10.7 FL (9.5-12.2); NRBC Per 100 WBC 0 X 10*3/uL (0.00-0.01); Platelet Count 194 X 10*3/uL (140-440); RBC 4.05 X 10*6/uL (4.10-5.20); RDW 12.8 % (11.5-14.5); WBC 3.74 X 10*3/uL (4.50-10.00)
[2024-11-17 15:39] LABS: Basophils # (A) 0.02 X 10*3/uL (0.00-0.10); Basophils % (A) 0.5 %; Eosinophils # (A) 0.11 X 10*3/uL (0.04-0.35); Eosinophils % (A) 2.9 %; Lymphocytes # (A) 1.47 X 10*3/uL (0.90-5.00); Lymphocytes % (A) 39.3 %; Monocytes # (A) 0.41 X 10*3/uL (0.20-1.00); Neutrophils # (A) 1.71 X 10*3/uL (1.80-7.70); Neutrophils % (A) 45.8 %; RBC Morphology Normal (Normal)
== END | disposition home or self-care (01) ==
LOC: LABPAT 09:46
PROVIDERS: ATTEND Obstetrics & Gynecology Obstetrics
DX: Z01.818 Encounter for other preprocedural examination (principal)
CPT/HCPCS: 36415; 85025